=== PATIENT | female | born 1945 | race Caucasian/White ===

== ENCOUNTER 2016-09-05 18:02 | Emergency (ER) | payer MEDICARE ==
[2016-06-21 12:23] VITALS: BMI 26.1
[~2016-09-05 18:02] MED LIST: CARDIZEM60 MG PO; IBUPROFEN600 MG PO; PLAVIX75 MG PO
[2016-09-05 18:42] LABS: BASOPHILS 0.2 % (0.0-2.0); EOSINOPHILS 0.8 % (0-7); HEMATOCRIT 42.6 % (36.0-48.0); HEMOGLOBIN 13.6 g/dL (12-16); IMMATURE GRANULOCYTES 0.2 % (0-5); LYMPHOCYTES 20.6 % (15-50); MCH 27.4 pg (26.0-34.0); MCHC 31.9 g/dL (31.0-37.0); MCV 85.9 fL (80.0-100.0); MEAN PLATELET VOLUME 9.7 fL (7.4-10.4); MONOCYTES 10.2 % (2-11); PLATELET COUNT 307 10x3/uL (130-400); RBC 4.96 10x6/uL (4.00-5.40); RDW 13.8 % (11.5-14.5); WBC 9.3 10x3/uL (4.8-10.8)
[2016-09-05 19:02] LABS: ALBUMIN 3.8 g/dL (3.4-5.0); ANION GAP 14.4 mmol/L (8-16); BILIRUBIN - TOTAL 0.49 mg/dL (0.2-1.3); CALCIUM 8.8 mg/dL (8.5-10.1); CARBON DIOXIDE 26.6 mmol/L (21.0-32.0); CREATININE - SERUM 1.1 mg/dL (0.6-1.3)
[2016-09-05 19:15] LABS: AMYLASE - SERUM 66 U/L (25-115); LIPASE 142 U/L (73-393)
[2016-09-05 20:02] LABS: APPEARANCE CLEAR (CLEAR); BILIRUBIN NEGATIVE (NEGATIVE); COLOR YELLOW (YELLOW); GLUCOSE NEGATIVE (NEGATIVE); KETONE NEGATIVE (NEGATIVE); LEUKOCYTE ESTERASE NEGATIVE (NEGATIVE); NITRITE NEGATIVE (NEGATIVE); PROTEIN NEGATIVE (NEGATIVE); UROBILINOGEN NORMAL (NORMAL)
== END 2016-09-05 21:55 | disposition home or self-care (01) ==
LOC: D.ER 18:02
PROVIDERS: Emergency Medicine
DX: R07.81 Pleurodynia (principal); I10 Essential (primary) hypertension; C22.8 Malignant neoplasm of liver, primary, unspecified as to type

== ENCOUNTER 2016-11-01 17:13 | Emergency (ER) | payer MEDICARE ==
[2016-06-21 12:23] VITALS: BMI 26.1
[2016-11-01 18:33] LABS: BASOPHILS 0.1 % (0.0-2.0); EOSINOPHILS 1.3 % (0-7); HEMOGLOBIN 11.8 g/dL (12-16); IMMATURE GRANULOCYTES 0.3 % (0-5); LYMPHOCYTES 18.7 % (15-50); MCH 26.7 pg (26.0-34.0); MCHC 31.1 g/dL (31.0-37.0); MEAN PLATELET VOLUME 9.5 fL (7.4-10.4); MONOCYTES 9.5 % (2-11); NEUTROPHILS 70.1 % (40-80); RBC 4.42 10x6/uL (4.00-5.40); RDW 15.3 % (11.5-14.5); WBC 7.5 10x3/uL (4.8-10.8)
[2016-11-01 18:49] LABS: PLATELET COUNT 432 10x3/uL (130-400)
[2016-11-01 19:12] LABS: ALBUMIN 3.4 g/dL (3.4-5.0); BILIRUBIN - TOTAL 0.32 mg/dL (0.2-1.3); CALCIUM 8.7 mg/dL (8.5-10.1); CARBON DIOXIDE 27.3 mmol/L (21.0-32.0); CREATININE - SERUM 0.9 mg/dL (0.6-1.3); POTASSIUM - SERUM 4.3 mmol/L (3.5-5.1); PROTEIN - SERUM 7.4 g/dL (6.4-8.2)
== END 2016-11-01 21:15 | disposition home or self-care (01) ==
LOC: D.ER 17:13
PROVIDERS: Emergency Medicine
DX: G89.18 Other acute postprocedural pain (principal); I10 Essential (primary) hypertension; C22.8 Malignant neoplasm of liver, primary, unspecified as to type

== ENCOUNTER → 2017-03-16 08:57 | Outpatient (CLI) | payer MEDICARE ==
[2016-06-21 12:23] VITALS: BMI 26.1
== END | disposition home or self-care (01) ==
LOC: D.CT 08:57
DX: R10.11 Right upper quadrant pain (principal); C22.0 Liver cell carcinoma

== ENCOUNTER 2017-06-27 07:17 | Day surgery (SDC) | payer MEDICARE ==
[~2017-06-27] VITALS: Ht 152.4 cm; Wt 57.3 kg
[2017-06-27] MEDS ORDERED: CARTIA XT120 MG PO (07:56)
[2017-06-27 07:59] LABS: HEMATOCRIT 45.5 % (36.0-48.0); HEMOGLOBIN 14.7 g/dL (12-16); MCHC 32.3 g/dL (31.0-37.0); MCV 86.7 fL (80.0-100.0); MEAN PLATELET VOLUME 10.1 fL (7.4-10.4); RBC 5.25 10x6/uL (4.00-5.40); RDW 14.7 % (11.5-14.5); WBC 5.1 10x3/uL (4.8-10.8)
[2017-06-27 08:00] VITALS: BP 185/83; Ht 152.4 cm; Wt 57.3 kg
[2017-06-27 08:15] LABS: APTT 30.9 SECONDS (22.8-39.4)
[2017-06-27 08:21] LABS: ALBUMIN 3.9 g/dL (3.4-5.0); ANION GAP 12.5 mmol/L (8-16); BILIRUBIN - TOTAL 0.62 mg/dL (0.2-1.3); CARBON DIOXIDE 27.3 mmol/L (21.0-32.0); CREATININE - SERUM 1.1 mg/dL (0.6-1.3); POTASSIUM - SERUM 3.8 mmol/L (3.5-5.1); PROTEIN - SERUM 8.5 g/dL (6.4-8.2)
[2017-06-27 08:41] LABS: INR 0.97 (0.85-1.17); PROTIME 12.7 SECONDS (11.6-15.0)
--- NOTE | 2017-06-27 09:15 | NUR ---
PT REC'D TO ROOM VIA STRETCHER. AWAKE, ALERT, TALKING.
--- NOTE | 2017-06-27 09:30 | NUR ---
FULL LIQ PROVIDED AND TOLERATED.
--- NOTE | 2017-06-27 09:50 | NUR ---
IV D/C'D CATH INTACT. PT UP TO DRESS.
--- NOTE | 2017-06-27 10:10 | NUR ---
D/C INSTRUCTIONS EXPLAINED TO PT. VOICED UNDERSTANDING. COPIES OF ALL GIVEN, WELL WRITTEN RX FOR PROTONIX PER DR. SMITH.
--- NOTE | 2017-06-27 10:20 | NUR ---
D/C'D HOME VIA W/C TO PRIVATE CAR.
--- NOTE | 2017-06-27 10:56 | OP ---
PATIENT NAME: RADHA MENDEZ MEDICAL RECORD: [id number] :43 LOCATION:D.OPS ADMISSION DATE: SURGEON: MARIA EUGENIA SMITH DO DATE OF OPERATION: 06/27/2017 PROCEDURE: EGD with biopsies. INDICATIONS FOR PROCEDURE: Gas and bloating and change in bowel habits. SCOPE: [employer] video gastroscope. MEDICATIONS: Propofol 150 mg IV per anesthesia. ESTIMATED BLOOD LOSS: Minimal. COMPLICATIONS: None. FINDINGS: Informed consent was given. The patient was made comfortable with the above medication. After reaching an adequate level of sedation by slow IV push, the patient was placed on her left side. The endoscope was then advanced under direct visualization through the mouth to the second portion of the duodenum. The upper, middle, and lower thirds of the esophagus appeared normal. At the GE junction, there was some evidence of mild [place] class A reflux-induced esophagitis. The endoscope was advanced beyond the GE junction into the stomach and retroflexed to view the cardia and fundus, which appeared normal. Throughout the stomach in a patchy distribution there was some granularity consistent with possible gastritis or gastropathic changes. Random biopsies were taken to submit for histology and to rule out H. pylori. In the antrum and prepyloric region, there were multiple superficial and one deeper ulceration with the appearances consistent with medication induced ulcerations. The endoscope was advanced beyond the pylorus into the duodenum where the entire examined duodenum appeared normal. The scope was then withdrawn from the patient. The patient tolerated the procedure well and there were no complications. IMPRESSION: 1. [place] class A reflux-induced esophagitis. 2. Gastritis. 3. Multiple antral and prepyloric ulcerations with the appearances consistent with medication induced ulcers. PLAN AND RECOMMENDATIONS: 1. Discharge home when recovery parameters are met. 2. Start Protonix 40 mg daily in the a.m. times 8 weeks. 3. After completion of Protonix or equivalent PPI, consider H2 yari for acid suppression. 4. Repeat upper endoscopy in 8-12 weeks to document healing of ulcerations. 5. Minimize use of NSAIDs as tolerated. 6. Follow up biopsy specimen results and treatment for H. pylori if indicated. 7. Proceed with colonoscopy as scheduled. TRANSINT:[id number] Voice Confirmation ID: [id number] DOCUMENT ID: [id number] OPERATIVE REPORT [id number] VANESSA,RADHAMARIA EUGENIA AIKEN DO at 1056 CC: [id number] DICTATION DATE: 06/27/17904 WEB CONTENT PRODUCER: 06/27/17 1053 [facility] [address] [place] [address]
== END 2017-06-27 10:20 | disposition home or self-care (01) ==
LOC: D.OPS 07:17
PROVIDERS: Anesthesiology
DX: R19.4 Change in bowel habit (principal); K21.0 Gastro-esophageal reflux disease with esophagitis; K29.70 Gastritis, unspecified, without bleeding; I25.10 Atherosclerotic heart disease of native coronary artery without angina pectoris; I10 Essential (primary) hypertension; Z01.812 Encounter for preprocedural laboratory examination

== ENCOUNTER 2017-07-04 08:02 | Day surgery (SDC) | payer MEDICARE ==
[~2017-07-04] VITALS: Ht 152.4 cm; Wt 57.3 kg
[~2017-07-04 08:02] MED LIST changes: +CARTIA XT120 MG PO
[2017-07-04] MEDS ORDERED: PROTONIX40 MG PO (08:26)
[2017-07-04 08:34] VITALS: BP 186/96; Ht 152.4 cm; Wt 57.3 kg
[2017-07-04 09:28] LABS: BASOPHILS 0.4 % (0-2); EOSINOPHILS 1.8 % (0-7); HEMATOCRIT 43.6 % (36.0-48.0); IMMATURE GRANULOCYTES 0.2 % (0-5); LYMPHOCYTES 31.6 % (15-50); MCH 27.6 pg (26.0-34.0); MCHC 32.1 g/dL (31.0-37.0); MCV 85.8 fL (80.0-100.0); MEAN PLATELET VOLUME 10.2 fL (7.4-10.4); MONOCYTES 7.4 % (2-11); NEUTROPHILS 58.6 % (40-80); PLATELET COUNT 236 10x3/uL (130-400); RBC 5.08 10x6/uL (4.00-5.40); RDW 14.5 % (11.5-14.5); WBC 4.5 10x3/uL (4.8-10.8)
[2017-07-04 09:50] LABS: APTT 30.9 SECONDS (22.8-39.4); INR 1.04 (0.85-1.17); PROTIME 13.5 SECONDS (11.6-15.0)
[2017-07-04 09:58] LABS: ALBUMIN 3.7 g/dL (3.4-5.0); ANION GAP 14.3 mmol/L (8-16); BILIRUBIN - TOTAL 0.77 mg/dL (0.2-1.3); CALCIUM 8.6 mg/dL (8.5-10.1); CARBON DIOXIDE 25.4 mmol/L (21.0-32.0); POTASSIUM - SERUM 3.7 mmol/L (3.5-5.1)
--- NOTE | 2017-07-04 11:46 | NUR ---
IV DC WITH CATHER TIP INTACT
--- NOTE | 2017-07-05 11:02 | OP ---
PATIENT NAME: RADHA MENDEZ MEDICAL RECORD: [id number] :43 LOCATION:D.OPS ADMISSION DATE: SURGEON: MARIA EUGENIA SMITH DO DATE OF OPERATION: 07/04/2017 PROCEDURE: Colonoscopy. INDICATIONS FOR PROCEDURE: Change in bowel habits, gas and bloating, history of liver cell carcinoma. SCOPE: Olympus video pediatric colonoscope. MEDICATIONS: Propofol IV per anesthesia. Please see anesthesia report. ESTIMATED BLOOD LOSS: Minimal. COMPLICATIONS: None. FINDINGS: Informed consent was given. The patient was made comfortable with the above medication. After reaching an adequate level of sedation by slow IV push, the patient was placed on her left side. A digital rectal examination was performed and was normal. The endoscope was then advanced under direct visualization through the rectum to the cecum with visualization of the appendiceal orifice and the ileocecal valve. The scope was slowly withdrawn and mucosa was carefully examined. The prep quality was good. There were no polyps visualized on today's examination. There were no diverticula either. Retroflexion was performed in the rectum with visualization of small nonbleeding internal hemorrhoids (grade I). Random biopsies were taken to submit for histopathology and to rule out microscopic colitis. Scope was withdrawn from the patient. The patient tolerated the procedure well and there were no complications. IMPRESSION: Grade I internal hemorrhoids, otherwise normal colonoscopy. PLAN AND RECOMMENDATIONS: 1. Discharge home when recovery parameters are met. 2. High-fiber diet. 3. Continue current medications. 4. Trial of dicyclomine 20 mg up to twice daily as needed for loose stools or abdominal cramping or pain. 5. Recall colonoscopy in 5 years based on history of liver cancer. TRANSINT:[id number] Voice Confirmation ID: [id number] DOCUMENT ID: [id number] MARIA EUGENIA SMITH DO at 1102 CC: [id number] DICTATION DATE: 07/04/17 1055 SOLAR SALES MANAGER: 07/04/17 1250 [facility] 07/04/17 [place] [id number]
== END 2017-07-04 12:00 | disposition home or self-care (01) ==
LOC: D.OPS 08:02
PROVIDERS: Anesthesiology
DX: R19.4 Change in bowel habit (principal); R14.3 Flatulence; Z85.05 Personal history of malignant neoplasm of liver; F17.200 Nicotine dependence, unspecified, uncomplicated; I10 Essential (primary) hypertension; K21.9 Gastro-esophageal reflux disease without esophagitis; I25.10 Atherosclerotic heart disease of native coronary artery without angina pectoris; B19.20 Unspecified viral hepatitis C without hepatic coma; Z01.812 Encounter for preprocedural laboratory examination; K64.0 First degree hemorrhoids

== ENCOUNTER → 2018-04-20 07:42 | Outpatient (CLI) | payer MEDICARE, BC ==
[2017-07-04 08:34] VITALS: BMI 24.6
[~2018-04-20 07:42] MED LIST changes: +PROTONIX40 MG PO
== END | disposition home or self-care (01) ==
LOC: D.NM 07:42
DX: C22.0 Liver cell carcinoma (principal)

== ENCOUNTER 2018-05-02 18:20 | Observation (INO) | payer MEDICARE, BC ==
[~2018-05-02] VITALS: Ht 152.4 cm; Wt 63.6 kg
--- NOTE | ~2018-05-02 | OP ---
PATIENT NAME: RADHA MENDEZ MEDICAL RECORD: [id number] :43 LOCATION:[facility] ADMISSION DATE:05/02/18 SURGEON: MEL CALLEJAS MD DATE OF OPERATION: 05/03/2018 PROCEDURES: 1. PTCA stent LAD. 2. PTCA LAD diagonal. 3. Left heart catheterization. 4. Selective coronary angiography. 5. Left ventriculogram. INDICATION: Angina and coronary artery disease. PROCEDURE IN DETAIL: After informed consent was obtained and after a detailed description of risks, benefits as well as alternative therapies, the patient elected to proceed with angiogram and angioplasty. The right radial area was prepped and draped in normal sterile fashion. Right radial artery was cannulated via modified Seldinger technique with placement of 6-Filipino sheath. All catheters exchanged through this sheath. FINDINGS: Left ventriculogram was performed in standard 30-degree JOHNSON view, reveals good cardiac wall motion throughout all segments. Overall ejection fraction estimated 60%. SELECTIVE CORONARY ANGIOGRAPHY: 1. Left main is with no significant angiographic disease. 2. Left anterior descending has previously placed stents. There is up to 80% in-stent restenosis. The diagonal is stenosed at greater than 90%. It comes off at the stented area. PTCA STENT OF THE LAD: The stents used were 2.25 x 18 and 3.0 x 12 both Farrukh stents. The diagonal was addressed with a 2.25 balloon. Result was 0% residual stenosis throughout. OVERALL IMPRESSION: Successful percutaneous transluminal coronary angioplasty stent of the left anterior descending going from 80% initial stenosis to 0% residual. TRANSINT:[id number] Voice Confirmation ID: [id number] DOCUMENT ID: [id number] MEL CALLEAJS MD at 1859 CC: [id number] DICTATION DATE: 05/03/18 1129 TANK WAGON OPERATOR: 05/03/18 1142 [facility] IN 05/03/18 [place] [id number]
--- NOTE | ~2018-05-02 | CN ---
PATIENT NAME:RADHA GOVEA MEDICAL RECORD: [id number] : 43 LOCATION:[id number] ADMIT DATE: 05/02/18 ACCOUNT: [id number] CONSULTING PHYSICIAN: MEL CALLEJAS MD REFERRING PHYSICIAN: ELSIE MULTANI MD DATE OF CONSULTATION: 05/03/2018 DIAGNOSES: 1. Chest pain compatible with angina. 2. Hypertension. HISTORY OF PRESENT ILLNESS: Ms. Govea presents with 2 weeks of chest pain, worsening over the past 2 days. She now has episodes of chest pain that are quite severe, radiate to her neck and jaw and down her arm. It has been changing in an unstable fashion, especially in the last 2 days. They have been coming on very frequently. She does not correlate this with any exertion. She was having episodes of rest pain yesterday. She did rule out for a myocardial infarction. She has continued to have the episodes of chest discomfort overnight. Her EKG is with nonspecific ST-T abnormalities. She only has a history of hypertension for which she has been tried on lisinopril, but she had a cough and now she is on diltiazem, but only at 120 mg every day and this is not controlling her blood pressure. PHYSICAL EXAMINATION: GENERAL APPEARANCE: Well-nourished, well-developed, appears stated age. Level of distress, comfortable. PSYCHIATRIC: Mental status, alert, normal affect. Orientation, oriented to time, place and person. EYES: Lids and conjunctiva, noninjected. No discharge, no pallor. ENT: Lips, teeth, gums, normal dentition. Oropharynx, no cyanosis, no pallor. NECK: Carotid arteries, bilateral normal upstroke, no bruits, no thrills. JUGULAR VEINS: No jugular venous pressure or distention. CERVICAL LYMPH NODES: Nontender, nonenlarged. THYROID: Not enlarged. Nontender. No nodules. LUNGS: Respiratory effort, unlabored. CHEST: Normal curvature. No thoracic deformity. No chest wall tenderness. Percussion, resonant. Auscultation, clear. No wheezes, no rales, no rhonchi. CARDIOVASCULAR: Precordial exam, nondisplaced. No heaves or pericardial thrills. Rate and rhythm, regular. Heart sounds, normal S1, normal S2. No S3, no gallop, no rub. Systolic murmur, not heard. Diastolic murmur, not heard. EXTREMITIES: No cyanosis, no edema. Peripheral pulses, full and equal in all extremities, except as noted. No bruits appreciated. ABDOMEN: Soft, nondistended. Normal aorta. No bruit. Nontender. No masses. Liver, nontender, no hepatomegaly. Spleen, nontender, no splenomegaly. MUSCULOSKELETAL: No joint tenderness. No joint swelling. No erythema. NEUROLOGICAL: Normal gait, normal strength, normal tone. SKIN: Warm and dry. OVERALL IMPRESSION: 1. Chest pain compatible with angina. We will proceed with coronary angiography as this is in an unstable fashion. Further care depends on findings of the angiography. 2. Hypertension. Easiest thing to do since she is tolerating the diltiazem, but it is not working well to control her blood pressure, is to increase the dose to 240 mg before adding a second agent. CONSULT REPORT [id number] RADHA GOVEA LINDA TRANSINT:[id number] Voice Confirmation ID: [id number] DOCUMENT ID: [id number] MEL CALLEJAS MD at 1439 CC: [id number] DICTATION DATE: 05/03/18 0856 TITLE SEARCHER: 05/03/18 0916 ADM IN [place] [id number] [place] [address]
--- NOTE | ~2018-05-02 | HEMODYNAMI ---
PATIENT:RADHA MENDEZ MEDICAL RECORD: [id number] : 41 LOCATION[facility] [facility] [id number] ADMISSION DATE: 05/02/18 Generatedon:05/03/201811:32 Patient name: RADHA MENDEZ Patient #: [id number] N: [id number] : 1945 Date of study: 05/03/2018 Page: Of Hemodynamic Procedure Report Patient Data Patient Demographics Procedure consent was obtained First Name: RADHA Gender: Female Last Name: VANESSA : 1945 [facility] Initial: LINDA Age: 72 year(s) Patient #: [id number] Race: SSN: [id number] Additional ID: [id number] Contact details [address]: [address] [place] [address] State: [place] City: [place] Zip code: [address] Admission Admission Data Admission Date: 05/02/2018 Admission Time: 21:27 Room #: [facility] Procedure Procedure Types Cath Procedure Diagnostic Procedure C [facility] w/Coronaries Sedation Charges Moderate Sedation up to 15 minutes PCI Procedure Coronary Stent Coronary Stent Initial PTCA PTCA Additional Procedure Description Procedure Date Procedure Date: 05/03/2018 Procedure Start Time: 11:06 Procedure End Time: 11:26 Procedure Staff Name Function Anoop Matamoros MD Performing Physician Candie Harris RT Monitor Vikas Allred RN Nurse James Mariscal RT Scrub Procedure Data Cath Procedure Fluoroscopy Diagnostic fluoroscopy Total fluoroscopy Time: 8.3 time: 8.3 min min Diagnostic fluoroscopy Total fluoroscopy dose: dose: 1034 mGy 1034 mGy Contrast Material Contrast Material Type Amount (ml) Isovue 300 141 Entry Location Entry Primary Successful Side Size Upsize Upsize Entry Closure [place] ccessful Closure Location (Fr) 1 (Fr) 2 (Fr) Remarks Device Remarks Radial Right 6 Fr Mechanical artery Short Compression Estimated blood loss: 5 ml Diagnostic catheters Device Type Used For End Catheter Placement DIAGNOSTIC Leopold 110cm 5 Multi-vessel Fr catheter ([id number]) Angiography DIAGNOSTIC AR 1 MOD 5Fr Multi-vessel catheter ([id number]) Angiography Procedure Complications No complications Procedure Medications Medication Administration Route Dosage Oxygen etCO2 Nasal cannula 2 l/min Heparin Flush Bag added to field 2 bags (1000units/500ml NS) 0.9% NaCl I.V. 100 ml/hr Radial Cocktail added to field 1 syringe (Verapomil 2mg/Nitro 400mcg/Heparin 1500units) Fentanyl I.V. 50 mcg Versed I.V. 1 mg Radial Cocktail I.A. 1 syringe (Verapomil 2mg/Nitro 400mcg/Heparin 1500units) Fentanyl I.V. 50 mcg Versed I.V. 1 mg Heparin Bolus I.V. 4000 units Integrilin (Bolus I.V. 5.6 ml 2mg/ml) Plavix P.O. 600 mg Integrilin (Bolus wasted 4.4 ml 2mg/ml) Hemodynamics Rest Heart Rate: 80 (bpm) Snapshots Pre Cath Intra NCS Post Cath Vital Signs Time Heart Resp SPO2 etCO2 NIBP (mmHg) Rhythm Pain Sedation Rate (ipm) (%) (mmHg) Status Level (bpm) 10:45:32 80 16 94 0 171/108(147) NSR 0 (11) 10(A) , No pain 10:49:50 81 16 93 0 153/88(117) NSR 0 (11) 10(A) , No pain 10:54:04 74 16 96 39.8 138/80(112) NSR 0 (11) 10(A) , No pain 10:58:12 74 17 97 39.1 143/81(113) NSR 0 (11) 10(A) , No pain 11:02:22 73 17 97 38.3 142/82(111) NSR 0 (11) 10(A) , No pain 11:06:29 78 17 98 38.3 151/90(121) NSR 0 (11) 9(A) , No pain 11:10:47 83 16 95 37.6 116/68(90) NSR 0 (11) 9(A) , No pain 11:14:51 79 16 95 39.1 129/75(95) NSR 0 (11) 9(A) , No pain 11:18:59 79 17 96 39.1 132/77(96) NSR 0 (11) 9(A) , No pain 11:23:07 78 16 97 41.4 144/76(110) NSR 0 (11) 10(A) , No pain 11:31:49 76 17 97 36.9 139/89(119) NSR 0 (11) 10(A) , No pain Medications Time Medication Route Dose Verified Delivered Reason Not es Effectiveness by by 10:48:55 Oxygen etCO2 2 l/min Anoop Bean Per physician Nasal Shiloh Allred RN cannula 10:49:05 Heparin Flush added 2 bags Anoop Bean used for Bag to Shiloh Allred RN procedure (1000units/500ml field NS) 10:49:14 0.9% NaCl I.V. 100 Anoop Bean Per physician ml/hr Shiloh Allred RN 10:49:21 Radial Cocktail added 1 Anoop Bean used for (Verapomil to syringe Shiloh Allred RN procedure 2mg/Nitro field 400mcg/Heparin 1500units) 11:05:36 Fentanyl I.V. 50 mcg Anoop Bean for sedation Shiloh Allred RN 11:05:42 Versed I.V. 1 mg Anoop Bean for sedation Shiloh Allred RN 11:07:23 Radial Cocktail I.A. 1 Anoop Davalos for (Verapomil syringe Shiloh Matamoros MD vasodilation 2mg/Nitro 400mcg/Heparin 1500units) 11:07:33 Fentanyl I.V. 50 mcg Anoop Bean for sedation Shiloh Allred RN 11:07:38 Versed I.V. 1 mg Anoop Bean for sedation Shiloh Allred RN 11:19:29 Heparin Bolus I.V. 4000 Anoop Bean for units Shiloh Allred RN anticoagulation 11:19:44 Integrilin I.V. 5.6 ml Anoop Bean for (Bolus 2mg/ml) Shiloh Allred RN antiplatelet therapy 11:29:50 Plavix P.O. 600 mg Anoop Bean for Shiloh Allred RN antiplatelet therapy 11:31:01 Integrilin wasted 4.4 ml Anoop Bean for (Bolus 2mg/ml) Shiloh Allred RN antiplatelet therapy Procedure Log Time Note 10:20:10 James Mariscal RT(R) sent for patient. Start room use. 10:40:19 Time tracking: Regular hours (M-F 7:00 - 5:00) 10:40:23 Plan of Care:Hemodynamics will remain stable., Cardiac rhythm will remain stable., Comfort level will be maintained., Respiratory function will remain adequate., Patient/ family verbilizes understanding of procedure., Procedure tolerated without complication., Recovers from procedure without complications.. 10:40:32 Patient received from PCU to CCL 2 Alert and oriented. Tansferred to table in Supine position. 10:40:33 Warm blankets applied, and fiona hugger turned on for patient comfort. 10:40:34 Correct patient and procedure confirmed by team. 10:40:35 Signed procedure consent form obtained from patient. 10:40:35 ECG and BP/O2 sat monitors applied to patient. 10:44:26 Vital chart was started 10:48:55 Oxygen 2 l/min etCO2 Nasal cannula was administered by Vikas Allred RN; Per physician; 10:49:05 Heparin Flush Bag (1000units/500ml NS) 2 bags added to field was administered by Vikas Allred RN; used for procedure; 10:49:14 0.9% NaCl 100 ml/hr I.V. was administered by Vikas Allred RN; Per physician; 10:49:21 Radial Cocktail (Verapomil 2mg/Nitro 400mcg/Heparin 1500units) 1 syringe added to field was administered by Vikas Allred RN; used for procedure; 10:50:10 Baseline sample Acquired. 10:50:19 Rhythm: sinus rhythm 10:50:21 Full Disclosure recording started 10:50:24 H&P Date Dictated: 05/03/2018 New H&P dictated by physician.. 10:50:25 Pre-procedure instructions explained to patient. 10:50:26 Pre-op teaching completed and patient verbalized understanding. 10:50:27 Family in waiting room. 10:50:29 Patient NPO since Midnight. 10:50:30 Is the patient allergic to Iodine/contrast media? No. 10:50:34 Was the patient premedicated? No 10:50:49 Is patient on blood thinner?No 10:50:51 Patient diabetic? No. 10:50:54 Previous problem with sedation/anesthesia? No ? 10:50:56 Snore? No 10:50:57 Sleep apnea? No 10:50:58 Deviated septum? No 10:50:59 Opens mouth fully? No 10:51:02 Sticks out tongue? Yes 10:51:04 Airway obstruction? No ? 10:51:10 Dentures? Yes in tight 10:51:14 Pre procedure: right dorsailis pedis pulse 2+ Normal; easily identifiable; not easily obliterated 10:51:16 Pre procedure: left dorsailis pedis pulse 2+ Normal; easily identifiable; not easily obliterated 10:51:18 Patient pain scale 0/10 ?. 10:51:23 IV patent on arrival in right hand with 0.9% NaCl at [facility]. 10:51:27 Lab results completed and on chart. 10:51:31 Right Radial & Right Groin area was prepped with chlora-prep and draped in sterile fashion 10:51:31 Alarms reviewed by R. N. 10:51:32 Sharps counted by scrub and verified by R.N. 10:52:49 Physician paged 11:00:34 Zero performed for pressure channel P1 11:05:36 Fentanyl 50 mcg I.V. was administered by Vikas Allred RN; for sedation; 11:05:42 Versed 1 mg I.V. was administered by Vikas Allred RN; for sedation; 11:05:43 Physician arrived 11:05:43 --------ALL STOP TIME OUT------ 11:05:44 Final Timeout: patient, procedure, and site verified with staff and physician. All members of the team are in agreement. 11:05:47 Right Radial & Right Groin site verified by team. 11:05:49 Physical assessment completed. ASA score P 2 - A patient with mild systemic disease as per Anoop Matamoros MD. 11:05:52 Sedation plan: IV Moderate Sedation Medication:Versed, Fentanyl 11:05:56 Use device set Radial Dx or PCI 11:05:57 ACIST Syringe (23703) opened to sterile field. 11:05:57 Medline Cath Pack ([id number]) opened to sterile field. 11:05:58 Bag Decanter (2002) opened to sterile field. 11:05:58 DIAGNOSTIC WIRE .035 260cm J wire (069525) opened to sterile field. 11:05:59 ACIST Hand Control (20790) opened to sterile field. 11:05:59 ACIST Manifold (02545) opened to sterile field. 11:06:01 Tegaderm 4 x 4 (1626W) opened to sterile field. 11:06:02 MBrace Wrist Support (472767050) opened to sterile field. 11:06:03 SHEATH 6Fr Prelude Radial ([id number]) opened to sterile field. 11:06:06 Procedure started. 11:06:10 Local anesthetic to right radial artery with Lidocaine 2% by Anoop Matamoros MD.INITIAL ACCESS ONLY 11:06:20 A 6 Fr Short sheath was inserted into the Right Radial artery 11:06:50 A DIAGNOSTIC Leopold 110cm 5 Fr catheter (624582) was advanced over the wire and used for Multi-vessel Angiography. 11:07:23 Radial Cocktail (Verapomil 2mg/Nitro 400mcg/Heparin 1500units) 1 syringe I.A. was administered by Anoop Matamoros MD; for vasodilation; 11:07:33 Fentanyl 50 mcg I.V. was administered by Vikas Allred RN; for sedation; 11:07:38 Versed 1 mg I.V. was administered by Vikas Allred RN; for sedation; 11:08:42 LCA angiography performed. 11:08:58 Injector settings: Ml/sec: 3, Volume: 6, 11:10:11 Catheter removed. 11:11:03 A DIAGNOSTIC AR 1 MOD 5Fr catheter (412878V) was advanced over the wire and used for Multi-vessel Angiography. 11:11:14 RCA angiography performed. 11:11:17 Injector settings: Ml/sec: 3, Volume: 6, 11:13:29 Catheter removed. 11:13:29 Proceeding to intervention. 11:14:31 INFLATOR Merit BasixCompak (RZ1512) opened to sterile field. 11:14:32 CHOICE PT Extra Support 182cm wire ([id number]) opened to sterile field. 11:14:46 GUIDE 6FR XBLAD 3.5 catheter (29366929) opened to sterile field. 11:15:18 6 Fr xblad 3.5 guide catheter was inserted over the wire 11:17:44 Guide Catheter removed. unable to cannulate vessel. 11:17:55 GUIDE 6FR EBU 3.0 catheter (CO9LHS49) opened to sterile field. 11:19:15 6 Fr ebu 3 guide catheter was inserted over the wire 11::21 choice pt wire advanced. 11:19:26 Wire advanced across lesion. 11:19:29 Heparin Bolus 4000 units I.V. was administered by Vikas Allred RN; for anticoagulation; 11::44 Integrilin (Bolus 2mg/ml) 5.6 ml I.V. was administered by Vikas Allred RN; for antiplatelet therapy; 11:21:09 Place stent Inflation Number: 1 A CORRINA RX 2.25 x 18 stent ([id number]) was prepped and advanced across the Mid LAD. The stent was deployed at 17 LAINEY for 0:10 (min:sec). 11::23 Wire redirected to diag. 11::43 Inflation number: 1 The stent balloon was then re-inflated across the 1st Diag to 13 LAINEY for 0:10 (min:sec). 11::09 Wire redirected to lad. 11:23:36 Place stent Inflation Number: 1 A CORRINA RX 3.0 x 12 stent ([id number]) was prepped and advanced across the Prox LAD. The stent was deployed at 15 LAINEY for 0:10 (min:sec). 11:24:19 Stent catheter was removed intact over wire. 11:24:20 Wire removed. 11:24:20 Guide catheter removed. 11:24:23 TR BAND Standard ([id number]) opened to sterile field. 11:24:31 Sheath removed intact; hemostasis achieved with Mechanical Compression to the Right Radial artery. 11:24:33 Procedure ended.(Physican Out) :25:07 Fluoroscopy time 08.30 minutes. 11:25:12 Fluoroscopy dose: 1034 mGy 11:25:12 Flurop Dose total: 1034 11:25:23 Contrast amount:Isovue 300 141ml. 11:25:25 Sharps counted by scrub and verified by R.N. 11:25:31 TR band inflated with 10cc of air. 11:25:32 Insertion/operative site no bleeding no hematoma. 11:25:36 Post right radial artery:stable 11:25:37 Post Procedure Pulses reassessed and unchanged 11:25:40 Post procedure rhythm: unchanged. 11::42 Estimated blood loss: 5 ml 11::43 Post procedure instruction explained to patient.Patient verbalizes understanding. 11::44 Patient needs reinforcement of post procedure teaching. 11::06 Procedure type changed to Cath procedure, Diagnostic procedure, LHC, LHC w/Coronaries, Sedation Charges, Moderate Sedation up to 15 minutes, PCI procedure, Coronary Stent, Coronary Stent Initial, PTCA, PTCA Additional 11::07 Procedure and supply charges have been captured, reviewed, submitted and are correct. 11:26:12 Procedure Complication : No complications 11::15 Vital chart was stopped 11::15 See physician's report for complete and final results. 11::17 Report given to Pre/Post Procedure Room. 11::20 Patient transfered to Pre/Post Procedure Room with Stretcher. 11::24 Procedure ended. 11::24 Full Disclosure recording stopped 11::32 ACC-PCI Only Patient was given prescriptions, or instructed by Anoop Matamoros MD to start/continue the following medications upon discharge: Aspirin, Plavix 11::34 End room use (Document Last) 11:29:50 Plavix 600 mg P.O. was administered by Vikas Allred RN; for antiplatelet therapy; 11:31:01 Integrilin (Bolus 2mg/ml) 4.4 ml wasted was administered by Vikas Allred RN; for antiplatelet therapy; Intervention Summary Intervention Notes Time ActionType Lesion and Equipment Used Action# Pressure Duration Attributes 11:21:09 Place stent Mid LAD CORRINA RX 2.25 x 1 17 00:10 18 stent ([id number]) 11:21:43 Reinflate 1st Diag CORRINA RX 2.25 x 1 13 00:10 stent 18 stent balloon ([id number]) 11:23:36 Place stent Prox LAD CORRINA RX 3.0 x 1 15 00:10 12 stent ([id number]) Device Usage Item Name Manufacture Quantity Catalog Number Hospital Part Current Minimal Lot# / Charge Number Stock Stock Serial# Code ACIST Syringe Acist 1 58323 508085 942063 163020 20 (81970) Nagi Medline Cath Cardinal 1 [id number] 839682 27023 425063 5 Pack Health ([id number]) Bag Decanter Microtek 1 772252 45257 608772 5 (2001S) Medical Inc. DIAGNOSTIC WIRE [facility] [place] 1 439719 993788 470865 999915 30 .035 260cm J wire (374699) ACIST Hand Acist 1 64290 559366 178921 671851 5 Control (61825) Medical Systems Inc ACIST Manifold Acist 1 82599 383717 635123 021802 5 (12455) Medical Systems Inc Tegaderm 4 x 4 3M 1 1626W 546145 348078 215567 5 (1626W) MBrace Wrist Advanced 1 140-0250-00 293230 09250 636586 5 Support Vascular ([id number]) Dynamics SHEATH 6Fr Merit 1 [id number] 137115 895291 386015 5 Prelude Radial Medical ([id number]) DIAGNOSTIC Terumo 1 50-6282 790788 326866 061216 5 Leopold 110cm 5 Fr catheter (405208) DIAGNOSTIC AR 1 Cardinal 1 [id number] 931480 919125 596295 15 MOD 5Fr Health catheter (120351W) INFLATOR Merit Merit 1 [id number] 357123 904653 171142 15 BasixCom1DocWay Medical ([id number]) CHOICE PT Extra [place] 1 [id number] 183781 787266 229751 5 Support 182cm Scientific wire ([id number]) GUIDE 6FR XBLAD Cardinal 1 [id number] 920143 861279 680330 10 3.5 catheter Health (11037024) GUIDE 6FR EBU Medtronic 1 [id number] 937125 55429 576706 0 3.0 catheter ([id number]) CORRINA RX 2.25 x Medtronic 1 [id number] 975568 3458076 371921 5 [id number] 18 stent ([id number]) CORRINA RX 3.0 x Medtronic 1 [id number] 464951 9827734 050917 5 [id number] 12 stent ([id number]) TR BAND Terumo 1 [id number] 890309 475373 158320 40 Standard ([id number]) Signature Audit [place] Stage Time Signature Unsigned Intra-Procedure 05/03/2018 Candie Harris 11:32:40 AM RT(R) Signatures Monitor : Candie Harris RT Signature : Date : Time : [facility] [address] [place] [address]
[2018-05-02 18:45] LABS: BASOPHILS 0.2 % (0-2); EOSINOPHILS 1.2 % (0-7); HEMATOCRIT 42.3 % (36.0-48.0); IMMATURE GRANULOCYTES 0.2 % (0-5); MCH 28.2 pg (26.0-34.0); MCHC 33.1 g/dL (31.0-37.0); MCV 85.1 fL (80.0-100.0); MEAN PLATELET VOLUME 10.1 fL (7.4-10.4); MONOCYTES 9.9 % (2-11); NEUTROPHILS 68.5 % (40-80); PLATELET COUNT 244 10x3/uL (130-400); RBC 4.97 10x6/uL (4.00-5.40); WBC 9.2 10x3/uL (4.8-10.8)
[2018-05-02 19:05] LABS: ALBUMIN 3.5 g/dL (3.4-5.0); ALKALINE PHOSPHATASE 93 U/L (46-116); ALT (SGPT) 16 U/L (10-68); BILIRUBIN - TOTAL 0.33 mg/dL (0.2-1.3); CALC OSMOLALITY 284 mosm/kg (275-300); CALCIUM 8.5 mg/dL (8.5-10.1); CARBON DIOXIDE 25.2 mmol/L (21.0-32.0); CHLORIDE - SERUM 105 mmol/L (98-107); CREATININE - SERUM 1.1 mg/dL (0.6-1.3); GLUCOSE 98 mg/dL (74-106); POTASSIUM - SERUM 3.5 mmol/L (3.5-5.1); PROTEIN - SERUM 7.7 g/dL (6.4-8.2); SODIUM 142 mmol/L (136-145); UREA NITROGEN 18 mg/dL (7-18); eGFR NON AFRICAN AMERICAN 51 mL/min (90-120)
[2018-05-02 19:16] LABS: CKMB 1.7 U/L (0.0-3.6); CREATINE KINASE 73 UL (21-215); PRO BNP 381 pg/mL (0-125); TROPONIN-I < 0.017 ng/mL (0.000-0.060)
[2018-05-02 19:28] VITALS: BP 163/90
[2018-05-02 20:55] VITALS: BP 159/80
[2018-05-02 21:01] LABS: CREATINE KINASE 63 UL (21-215); TROPONIN-I < 0.017 ng/mL (0.000-0.060)
[2018-05-03 01:57] VITALS: BP 171/98
[2018-05-03 02:55] VITALS: BP 171/98; BMI 27.3
[2018-05-03 03:17] LABS: BASOPHILS 0.3 % (0-2); EOSINOPHILS 1.6 % (0-7); HEMATOCRIT 39.6 % (36.0-48.0); IMMATURE GRANULOCYTES 0.1 % (0-5); LYMPHOCYTES 25.7 % (15-50); MCHC 32.8 g/dL (31.0-37.0); MCV 85.3 fL (80.0-100.0); MEAN PLATELET VOLUME 10.2 fL (7.4-10.4); MONOCYTES 9.7 % (2-11); NEUTROPHILS 62.6 % (40-80); PLATELET COUNT 227 10x3/uL (130-400); RBC 4.64 10x6/uL (4.00-5.40); RDW 13.9 % (11.5-14.5)
[2018-05-03 03:39] LABS: ALKALINE PHOSPHATASE 83 U/L (46-116); ALT (SGPT) 12 U/L (10-68); BILIRUBIN - TOTAL 0.34 mg/dL (0.2-1.3); CALCIUM 8.5 mg/dL (8.5-10.1); CHLORIDE - SERUM 105 mmol/L (98-107); CKMB 1.4 U/L (0.0-3.6); CREATINE KINASE 58 UL (21-215); CREATININE - SERUM 1.1 mg/dL (0.6-1.3); GLUCOSE 108 mg/dL (74-106); POTASSIUM - SERUM 3.4 mmol/L (3.5-5.1); PROTEIN - SERUM 6.9 g/dL (6.4-8.2); SODIUM 142 mmol/L (136-145); eGFR NON AFRICAN AMERICAN 51 mL/min (90-120)
[2018-05-03 03:50] LABS: CALC OSMOLALITY 283 mosm/kg (275-300); TROPONIN-I < 0.017 ng/mL (0.000-0.060); UREA NITROGEN 13 mg/dL (7-18)
[2018-05-03 06:34] VITALS: BP 149/87
[2018-05-03 09:02] LABS: CKMB 1.5 U/L (0.0-3.6); CREATINE KINASE 57 UL (21-215)
[2018-05-03 09:04] VITALS: BP 161/102
[2018-05-03 09:04] LABS: TROPONIN-I < 0.017 ng/mL (0.000-0.060)
[2018-05-03] MEDS ORDERED: BAYER CHEWABLE81 MG PO (12:03)
[2018-05-03] MEDS ORDERED: CARDIZEM CD240 MG PO (12:03)
[2018-05-03] MEDS ORDERED: PLAVIX75 MG PO (12:03)
[2018-05-03 12:23] VITALS: Ht 152.4 cm; Wt 63.6 kg
== END 2018-05-03 15:35 | disposition home or self-care (01) ==
LOC: D.ER 18:20 → OBSVTIME 21:27 → D.M2 21:27 → D.CLR 05-03 11:34
PROVIDERS: Emergency Medicine; Family Medicine
DX: I25.10 Atherosclerotic heart disease of native coronary artery without angina pectoris (principal); I10 Essential (primary) hypertension; E78.5 Hyperlipidemia, unspecified; Z86.73 Personal history of transient ischemic attack (TIA), and cerebral infarction without residual deficits; B19.20 Unspecified viral hepatitis C without hepatic coma; C22.0 Liver cell carcinoma; E87.6 Hypokalemia
CPT/HCPCS: 92921; 93458; C9600

== ENCOUNTER 2018-05-05 08:04 | Outpatient (CLI) | payer MEDICARE, BC ==
[~2018-05-05] VITALS: Ht 152.4 cm; Wt 63.6 kg
--- NOTE | ~2018-05-05 | HEMODYNAMI ---
PATIENT:RADHA MENDEZ MEDICAL RECORD: [id number] : 41 LOCATION:[facility] ADMISSION DATE: 05/05/18 Generatedon:05/05/201810:51 Patient name: RADHA MENDEZ Patient #: [id number] N: [id number] : 1945 Date of study: 05/05/2018 Page: Of Hemodynamic Procedure Report Patient Data Patient Demographics Procedure consent was obtained First Name: RADHA Gender: Female Last Name: VANESSA : 1945 [facility] Initial: LINDA Age: 72 year(s) Patient #: [id number] Race: SSN: [id number] Additional ID: [id number] Contact details Address: [address] [place] [address] State: [place] City: [place] Zip code: [address] Past Medical History Allergies: No known allergies Admission Admission Data Admission Date: 05/05/2018 Admission Time: 8:04 Height (in.): 5 BSA: 0.25 (m2) Height (cm.): 12.7 BMI: 3599.71 (kg/m2) Weight (lbs.): 128 Weight (kg.): 58.06 Lab Results Lab Result Date: 05/05/2018 Lab Result Time: 0:00 Biochemistry Name Units Result Min Max BUN mg/dl 17 --(---*)-- 7 18 Creatinine mg/dl 1.1 --(--*-)-- 0.6 1.3 CBC Name Units Result Min Max Hemoglobin g/dl 14.2 --(*---)-- 13.5 17.5 Procedure Procedure Types Cath Procedure Diagnostic Procedure Sedation Charges Moderate Sedation up to 15 minutes PCI Procedure Coronary Stent Coronary Stent Initial Coronary Stent Additional Procedure Description Procedure Date Procedure Date: 05/05/2018 Procedure Start Time: 10:28 Procedure End Time: 10:48 Procedure Staff Name Function Anoop Matamoros MD Performing Physician Adore Rodriguez RT Monitor Tiffani Rogers RN Nurse Vanessa Foote RN Nurse Sally Marquez RT Scrub Kyaw Misrha RT Traditional [facility] Practitioner Procedure Data Cath Procedure Fluoroscopy Diagnostic fluoroscopy Total fluoroscopy Time: 7.7 time: 7.7 min min Diagnostic fluoroscopy Total fluoroscopy dose: 384 dose: 384 mGy mGy Contrast Material Contrast Material Type Amount (ml) Isovue 300 147 Entry Location Entry Primary Successful Side Size Upsize Upsize Entry Closure Succes sful Closure Location (Fr) 1 (Fr) 2 (Fr) Remarks Device Remarks Femoral Right 6 Fr Exoseal artery Short Estimated blood loss: 10 ml Procedure Complications No complications Procedure Medications Medication Administration Route Dosage Oxygen etCO2 Nasal cannula 2 l/min Lidocaine 2% added to field 20 Heparin Flush Bag added to field 2 bags (1000units/500ml NS) 0.9% NaCl I.V. 100 ml/hr Versed I.V. 1 mg Fentanyl I.V. 50 mcg Versed I.V. 1 mg Fentanyl I.V. 50 mcg Versed I.V. 1 mg Fentanyl I.V. 50 mcg Heparin Bolus I.V. 4000 units Hemodynamics Rest BSA: 0.25 (m2) HGB: 14.2 (g/dl) O2 Consumption: Estimated: 23.32 (ml/min) O2 Con sumption indexed: Estimated:93.28 (ml/min/m) Heart Rate: 75 (bpm) Snapshots Pre Cath Intra NCS Post Cath Vital Signs Time Heart Resp SPO2 etCO2 NIBP (mmHg) Rhythm Pain Sedation Rate (ipm) (%) (mmHg) Status Level (bpm) 10:16:46 79 12 95 39 160/89(132) NSR 0 (11) 10(A) , No pain 10:21:27 79 13 97 39.2 147/80(115) NSR 0 (11) 10(A) , No pain 10:26:10 73 10 95 36.9 121/67(91) NSR 0 (11) 10(A) , No pain 10:30:48 72 10 96 35.4 128/68(96) NSR 0 (11) 10(A) , No pain 10:35:23 71 12 96 37.7 120/74(104) NSR 0 (11) 9(A) , No pain 10:40:01 73 10 96 39.2 116/60(88) NSR 0 (11) 9(A) , No pain 10:44:38 78 11 97 39.2 125/75(99) NSR 0 (11) 10(A) , No pain Medications Time Medication Route Dose Verified Delivered Reason Notes Effectiveness by by 10:17:17 Oxygen etCO2 2 Anoop Buffie used for Nasal l/min Shiloh Rogers RN procedure cannula 10:17:24 Lidocaine 2% added 20ml Anoop Anoop for local to vial Shiloh Matamoros MD anesthetic field 10:17:34 Heparin Flush added 2 Anoop Anoop used for Bag to bags Shiloh Matamoros MD procedure (1000units/500ml field NS) 10:20:14 0.9% NaCl I.V. 100 Anoop Buffie Per physician ml/hr Shiloh Rogers RN 10:23:23 Versed I.V. 1 mg Anoop Buffie for sedation Shiloh Rogers RN 10:23:29 Fentanyl I.V. 50 Anoop Buffie for sedation mcg Shiloh Rogers RN 10:26:56 Versed I.V. 1 mg Anoop Buffie for sedation Shiloh Rogers RN 10:27:00 Fentanyl I.V. 50 Anoop Buffie for sedation mcg Shiloh Rogers RN 10:32:29 Versed I.V. 1 mg Anoop Buffie for sedation Shiloh Rogers RN 10:32:34 Fentanyl I.V. 50 Anoop Buffie for sedation mcg Shiloh Rogers RN 10:35:38 Heparin Bolus I.V. 4000 Anoop Buffie for verif ied units Shiloh Rogers RN anticoagulation with Dr. Matamoros Procedure Log Time Note 9:59:34 Kyaw Mishra RT(R) sent for patient. Start room use. 9:59:35 Time tracking: Regular hours (M-F 7:00 - 5:00) 9:59:38 Plan of Care:Hemodynamics will remain stable., Cardiac rhythm will remain stable., Comfort level will be maintained., Respiratory function will remain adequate., Patient/ family verbilizes understanding of procedure., Procedure tolerated without complication., Recovers from procedure without complications.. 10:04:16 H&P Date Dictated: 04/13/2018 Within 30 days and on chart., H&P Addendum completed by physician on day of procedure. (MUST COMPLETE FOR ALL OUTPATIENTS). 10:04:22 Patient allergic to No known allergies 10:04:32 Patient Height : 5 inches 10:04:35 Patient Weight : 128 lbs 10:05:50 Lab Result : BUN 17 mg/dl 10:05:50 Lab Result : Creatinine 1.1 mg/dl 10:05:50 Lab Result : Hemoglobin 14.2 g/dl 10:12:16 Patient received from Pre/Post Procedure Room to CCL 1 Alert and oriented. Tansferred to table in Supine position. 10:12:17 Warm blankets applied, and fiona hugger turned on for patient comfort. 10:12:18 Correct patient and procedure confirmed by team. 10:12:19 Signed procedure consent form obtained from patient. 10:12:20 ECG and BP/O2 sat monitors applied to patient. 10:14:38 Full Disclosure recording started 10:15:50 Vital chart was started 10:17:17 Oxygen 2 l/min etCO2 Nasal cannula was administered by Tiffani Rogers RN; used for procedure; 10:17:24 Lidocaine 2% 20ml vial added to field was administered by Anoop Matamoros MD; for local anesthetic; 10:17:34 Heparin Flush Bag (1000units/500ml NS) 2 bags added to field was administered by Anoop Matamoros MD; used for procedure; 10:17:57 Pre-procedure instructions explained to patient. 10:17:57 Pre-op teaching completed and patient verbalized understanding. 10:18:01 Family in patients room. 10:18:03 Patient NPO since Midnight. 10:18:05 Is the patient allergic to Iodine/contrast media? No. 10:18:49 Is patient on blood thinner?Yes 10:18:51 ACC The patient was administered the following blood thiners within the last 24 hours: ACCPlavix 10:18:54 Patient diabetic? No. 10:18:56 Patient not . Patient is over age 55. 10:18:58 Previous problem with sedation/anesthesia? No ? 10:19:00 Snore? No 10:19:01 Sleep apnea? No 10:19:02 Deviated septum? No 10:19:03 Opens mouth fully? Yes 10:19:04 Sticks out tongue? Yes 10:19:06 Airway obstruction? No ? 10:19:11 Dentures? Yes IN TIGHT 10:19:19 Pre procedure: right dorsailis pedis pulse 2+ Normal; easily identifiable; not easily obliterated 10:19:22 Patient pain scale 0/10 ?. 10:19:26 IV patent on arrival in left hand with 0.9% NaCl at [facility]. 10:19:28 Lab results completed and on chart. 10:19:31 Right groin area was prepped with chlora-prep and draped in sterile fashion 10:19:32 Alarms reviewed by R. N. 10:19:33 Sharps counted by scrub and verified by R.N. 10:19:44 Use device set CATH PACK 10:19:45 ACIST Syringe (17661) opened to sterile field. 10:19:46 ACIST Hand Control (76797) opened to sterile field. 10:19:46 ACIST Manifold (91449) opened to sterile field. 10:19:47 Medline Cath Pack ([id number]) opened to sterile field. 10:19:47 Bag Decanter (2002S) opened to sterile field. 10:19:48 DIAGNOSTIC WIRE .035 260cm J wire (016480) opened to sterile field. 10:20:06 SHEATH 6FR [place] (PDZ212) opened to sterile field. 10:20:07 INFLATOR Merit BasixCompak (GO9393) opened to sterile field. 10:20:08 CHOICE PT Extra Support 182cm wire ([id number]) opened to sterile field. 10:20:14 0.9% NaCl 100 ml/hr I.V. was administered by Tiffani Rogers RN; Per physician; 10:22:24 Baseline sample Acquired. 10::28 Rhythm: sinus rhythm 10::33 --------ALL STOP TIME OUT------ 10:22:34 Final Timeout: patient, procedure, and site verified with staff and physician. All members of the team are in agreement. 10:22:35 Right groin site verified by team. 10:22:37 Physical assessment completed. ASA score P 2 - A patient with mild systemic disease as per Anoop Matamoros MD. 10:22:40 Sedation plan: IV Moderate Sedation Medication:Versed, Fentanyl 10:23:23 Versed 1 mg I.V. was administered by Tiffani Rogers RN; for sedation; 10:23:29 Fentanyl 50 mcg I.V. was administered by Tiffani Rogers RN; for sedation; 10:26:15 Zero performed for pressure channel P1 10:26:56 Versed 1 mg I.V. was administered by Tiffani Rogers RN; for sedation; 10:27:00 Fentanyl 50 mcg I.V. was administered by Tiffani Rogers RN; for sedation; 10:27:59 Procedure started. 10:28:20 GUIDE 6FR AR 2.0 SH catheter ([id number]) opened to sterile field. 10:28:39 Local anesthetic to right femoral artery with Lidocaine 2% by Anoop Matamoros MD.INITIAL ACCESS ONLY 10:29:03 A 6 Fr Short sheath was inserted into the Right Femoral artery 10:29:21 6 Fr AR 2 SH guide catheter was inserted over the wire 10:30:51 GUIDE UNABLE TO ENGAGE RCA 10:30:53 Guide catheter removed. 10:32:29 Versed 1 mg I.V. was administered by Tiffani Rogers RN; for sedation; 10:32:34 Fentanyl 50 mcg I.V. was administered by Tiffani Rogers RN; for sedation; 10:33:21 GUIDE 6FR AL 3.0 catheter ([id number]) opened to sterile field. 10:33:27 6 Fr AL 3 guide catheter was inserted over the wire 10:35:38 Heparin Bolus 4000 units I.V. was administered by Tiffani Rogers RN; for anticoagulation; verified with Dr. Matamoros 10:35:41 CHOICE ES 182 wire advanced. 10:36:22 Wire advanced across lesion. 10:37:57 The CORRINA RX 2.0 x 18 stent ([id number]) was advanced then removed because of failure to cross lesion 10:39:03 Inflate balloon Inflation number: 1 A EUPHORA 2.0 x 15 Balloon ([id number]) was prepped and advanced across the R PDA, then inflated to 13 LAINEY for 0:10 (min:sec). 10:39:23 Inflation number: 2 The EUPHORA 2.0 x 15 Balloon ([id number]) was reinflated across the R PDA, to 15 LAINEY for 0:10 (min:sec). 10:39:44 Balloon removed over the wire. 10:40:40 Place stent Inflation Number: 3 A CORRINA RX 2.0 x 18 stent ([id number]) was prepped and advanced across the R PDA. The stent was deployed at 13 LAINEY for 0:10 (min:sec). 10:41:00 Inflation number: 4 The stent balloon was then re-inflated across the R PDA to 15 LAINEY for 0:10 (min:sec). 10:41:12 Stent catheter was removed intact over wire. 10:43:36 Place stent Inflation Number: 1 A CORRINA RX 3.5 x 12 stent ([id number]) was prepped and advanced across the Prox RCA. The stent was deployed at 13 LAINEY for 0:10 (min:sec). 10:44:18 Stent catheter was removed intact over wire. 10:44:19 Wire removed. 10:44:20 Guide catheter removed. 10:44:53 EXOSEAL 6Fr (EX600) opened to sterile field. 10:45:03 Sheath removed intact; hemostasis achieved with Exoseal to the Right Femoral artery. 10:45:06 Procedure ended.(Physican Out) 10:46:38 Fluoroscopy time 07.70 minutes. 10:46:43 Flurop Dose total: 384 10:46:43 Fluoroscopy dose: 384 mGy 10:46:49 Contrast amount:Isovue 300 147ml. 10:46:50 Sharps counted by scrub and verified by R.N. 10:46:54 Post-op/insertion site Right Femoral artery dressed using a 4 x 4 and Tegaderm. 10:46:58 Post right femoral artery:stable, soft, clean and dry 10:47:01 Post-procedure physical assessment completed. ASA score P 2 - A patient with mild systemic disease as per Anoop Matamoros MD. 10:47:03 Post procedure rhythm: unchanged. 10:47:05 Estimated blood loss: 10 ml 10:47:06 Post procedure instruction explained to patient.Patient verbalizes understanding. 10:47:07 Patient needs reinforcement of post procedure teaching. 10:47:21 Procedure type changed to Cath procedure, Diagnostic procedure, Sedation Charges, Moderate Sedation up to 15 minutes, PCI procedure, Coronary Stent, Coronary Stent Initial, Coronary Stent Additional 10:48:20 Procedure and supply charges have been captured, reviewed, submitted and are correct. 10:48:22 Procedure Complication : No complications 10:48:23 Vital chart was stopped 10:48:24 See physician's report for complete and final results. 10:48:26 Report given to Pre/Post Procedure Room. 10:48:28 Patient transfered to Pre/Post Procedure Room with Bed. 10:48:30 Procedure ended. 10:48:30 Full Disclosure recording stopped 10:48:33 End room use (Document Last) Intervention Summary Intervention Notes Time ActionType Lesion and Equipment Used Action# Pressure Duration Attributes 10:37:57 Discard CORRINA RX 2.0 x Stent 18 stent ([id number]) 10:39:03 Inflate R PDA EUPHORA 2.0 x 1 13 00:10 balloon 15 Balloon ([id number]) 10:39:23 Reinflate R PDA EUPHORA 2.0 x 2 15 00:10 balloon 15 Balloon ([id number]) 10:40:40 Place stent R PDA CORRINA RX 2.0 x 3 13 00:10 18 stent ([id number]) 10:41:00 Reinflate R PDA CORRINA RX 2.0 x 4 15 00:10 stent 18 stent balloon ([id number]) 10:43:36 Place stent Prox RCA CORRINA RX 3.5 x 1 13 00:10 12 stent ([id number]) Device Usage Item Name Manufacture Quantity Catalog Number Hospital Part Current M inimal Lot# / Charge Number Stock Stock Serial# Code ACIST Syringe Acist 1 22495 173561 017652 180911 2 0 (74755) Medical Systems Inc ACIST Hand Acist 1 05042 477827 982562 712261 5 Control Medical (31730) Systems Inc ACIST Manifold Acist 1 12533 542730 012258 018221 5 (58204) Medical Systems Inc Medline Cath Cardinal 1 [id number] 000359 20160 508998 5 [facility] ([id number]) Bag Decanter Microtek 1 2001S 197110 98523 080567 5 () Medical Inc. DIAGNOSTIC St [place] 1 529940 833838 307988 750173 3 0 WIRE .035 260cm J wire (789274) SHEATH 6FR Terumo 1 BFA809 956822 954265 794015 4 0 [place] (MXA333) INFLATOR Merit Merit 1 DE1038 082943 487215 367187 1 5 Vumanity Media (IX6652) CHOICE PT [place] 1 [id number] 436599 935213 979766 5 Extra Support Scientific 182cm wire ([id number]) GUIDE 6FR AR Medtronic 1 [id number] 429217 36527 074745 1 2.0 SH catheter ([id number]) GUIDE 6FR AL Medtronic 1 HT2CI88 756054 30881 144181 1 3.0 catheter (GR7LW89) CORRINA RX 2.0 x Medtronic 1 [id number] 915017 3771309 855399 5 [id number] 18 stent ([id number]) EUPHORA 2.0 x Medtronic 1 [id number] 509107 513560 663400 5 [id number] 15 Balloon ([id number]) CORRINA RX 3.5 x Medtronic 1 [id number] 835193 7092096 322633 5 [id number] 12 stent ([id number]) EXOSEAL 6Fr Cardinal 1 EX600 652023 935681 153812 1 0 (EX600) Health Signature Audit [place] Stage Time Signature Unsigned Intra-Procedure 05/05/2018 Adore Rodriguez 10:51:31 AM RT(R) Signatures Monitor : Adore Rodriguez Signature : RT Date : Time : [address] [id number]
--- NOTE | ~2018-05-05 | OP ---
PATIENT NAME: RADHA MENDEZ MEDICAL RECORD: [id number] :41 LOCATION:D.CAT ADMISSION DATE: SURGEON: MEL CALLEJAS MD DATE OF OPERATION: 05/05/2018 PROCEDURES: 1. PTCA stent RCA. 2. PTCA stent PDA. 3. Selective coronary angiography. INDICATION: Angina and coronary artery disease. PROCEDURE PERFORMED: After informed consent was obtained and after a detailed description of risks, benefits as well as alternative therapies, the patient elected to proceed with angiogram and angioplasty. The right femoral area was prepped and draped in normal sterile fashion. The right femoral artery was cannulated via modified Seldinger technique with placement of 6-Hebrew sheath. All catheters exchanged through this sheath. FINDINGS: The right coronary artery has an 85% stenosis at the ostium 95% stenosis of the PDA. The PDA was addressed with a 2.0 x 18 mm Farrukh, the ostium with a 3.5 x 12 mm Farrukh. Result was 0% residual stenosis. OVERALL IMPRESSION: Successful percutaneous transluminal coronary angioplasty stent of the right coronary artery going from 95% initial stenosis to 0% residual. TRANSINT:[id number] Voice Confirmation ID: [id number] DOCUMENT ID: [id number] MEL CALLEJAS MD at 1859 CC: [id number] DICTATION DATE: 05/05/18 1050 ENGRAVER LETTER: 05/05/18 1054 DEP CLI 05/05/18 [place] [id number]
[~2018-05-05 08:04] MED LIST changes: +BAYER CHEWABLE81 MG PO; +CARDIZEM CD240 MG PO
[2018-05-05 08:26] VITALS: BP 156/78; Ht 152.4 cm; Wt 63.6 kg
[2018-05-05 08:35] LABS: BASOPHILS 0.2 % (0-2); EOSINOPHILS 1.7 % (0-7); HEMATOCRIT 42.9 % (36.0-48.0); HEMOGLOBIN 14.2 g/dL (12-16); IMMATURE GRANULOCYTES 0.2 % (0-5); MCH 28.2 pg (26.0-34.0); MCHC 33.1 g/dL (31.0-37.0); MCV 85.3 fL (80.0-100.0); MEAN PLATELET VOLUME 9.8 fL (7.4-10.4); MONOCYTES 9.3 % (2-11); NEUTROPHILS 65.6 % (40-80); PLATELET COUNT 246 10x3/uL (130-400); RBC 5.03 10x6/uL (4.00-5.40); RDW 13.8 % (11.5-14.5)
[2018-05-05 08:42] LABS: ANION GAP 8.9 mmol/L (8-16); CALCIUM 8.6 mg/dL (8.5-10.1); CARBON DIOXIDE 27.7 mmol/L (21.0-32.0); CREATININE - SERUM 1.1 mg/dL (0.6-1.3); POTASSIUM - SERUM 3.6 mmol/L (3.5-5.1)
== END 2018-05-05 15:05 ==
LOC: D.CATH 08:04
PROVIDERS: Internal Medicine Interventional Cardiology
DX: I25.110 Atherosclerotic heart disease of native coronary artery with unstable angina pectoris (principal)
CPT/HCPCS: C9600; C9601

== ENCOUNTER 2018-05-14 11:27 | Emergency (ER) | payer MEDICARE, BC ==
[~2018-05-14] VITALS: Ht 152.4 cm; Wt 62.7 kg
[2018-05-14 11:41] VITALS: Ht 152.4 cm; Wt 62.7 kg
[2018-05-14 12:42] LABS: BASOPHILS 0.4 % (0-2); EOSINOPHILS 2.9 % (0-7); HEMOGLOBIN 12.2 g/dL (12-16); IMMATURE GRANULOCYTES 0.2 % (0-5); LYMPHOCYTES 35.1 % (15-50); MCV 85.1 fL (80.0-100.0); MEAN PLATELET VOLUME 9.7 fL (7.4-10.4); MONOCYTES 10.3 % (2-11); NEUTROPHILS 51.1 % (40-80); PLATELET COUNT 264 10x3/uL (130-400); RBC 4.35 10x6/uL (4.00-5.40); WBC 4.8 10x3/uL (4.8-10.8)
[2018-05-14 12:52] LABS: ALBUMIN 3.3 g/dL (3.4-5.0); ANION GAP 12.4 mmol/L (8-16); BILIRUBIN - TOTAL 0.71 mg/dL (0.2-1.3); CALCIUM 8.4 mg/dL (8.5-10.1); CARBON DIOXIDE 26.3 mmol/L (21.0-32.0); POTASSIUM - SERUM 3.7 mmol/L (3.5-5.1)
[2018-05-14 14:41] VITALS: BP 154/84
== END 2018-05-14 14:42 | disposition home or self-care (01) ==
LOC: D.ER 11:27
PROVIDERS: Family Medicine
DX: R10.30 Lower abdominal pain, unspecified (principal); Z86.79 Personal history of other diseases of the circulatory system; Z98.890 Other specified postprocedural states; Z86.73 Personal history of transient ischemic attack (TIA), and cerebral infarction without residual deficits; Z86.19 Personal history of other infectious and parasitic diseases; R22.41 Localized swelling, mass and lump, right lower limb; M79.651 Pain in right thigh

== ENCOUNTER 2019-01-02 19:15 | Inpatient (IN) | payer MEDICARE, BC ==
--- NOTE | 2019-01-02 20:48 | NUR ---
PT ARRIVED TO ROOM 2101 PT IS AAO, UP WITH MINIMAL ASSIST BALANCE PROBLEMS. PT STATES WILL CALL FOR ASSIST. FAMILY IN ROOM. OBTAINED ORDERS FOR DIRECT ADMIT. PLACED INTO COMPUTER.
--- NOTE | 2019-01-02 22:35 | NUR ---
2 UNSUCCESSFUL ATTEMPTS FOR AN IV.
--- NOTE | 2019-01-02 23:35 | NUR ---
20G PLACED IN LEFT FOREARM. NIGHT MEDICATIONS GIVEN. PT HAS FAMILY IN ROOM. DAUGHTER TATE FOX NUMBER [phone] PT HAS NS INFUSING AT 100 ORDERED. DENIES ANY NEEDS. WILL CALL FOR ASSIST WHEN NEEDED. WILL CPOC
[2019-01-03] VITALS (7 sets, daily range): BP systolic 128–173; BP diastolic 67–97; BMI 23.8
--- NOTE | 2019-01-03 00:29 | NUR ---
EKG COMPLETE AND PLACED INTO CHART
[2019-01-03 01:08] LABS: APPEARANCE CLEAR (CLEAR); BILIRUBIN NEGATIVE (NEGATIVE); COLOR DK YELLOW (YELLOW); GLUCOSE NEGATIVE (NEGATIVE); KETONE SMALL mg/dL (NEGATIVE); NITRITE NEGATIVE (NEGATIVE); PROTEIN TRACE mg/dL (NEGATIVE); UROBILINOGEN NORMAL (NORMAL)
[2019-01-03 01:18] LABS: BACTERIA MODERATE /hpf (NONE SEEN); CALCIUM OXALATE CRYSTALS OCC /hpf (NONE SEEN); EPITHELIAL CELLS OCC /hpf (0-5); HYALINE CAST OCC /lpf (NONE SEEN); MUCUS >1+ /lpf (NONE SEEN); RED CELLS - URINE RARE /hpf (0-5); WHITE CELLS - URINE 0-5 /hpf (0-5)
--- NOTE | 2019-01-03 02:25 | NUR ---
PT ASLEEP, RESP EVEN AND UNLABORED. NO S/S OF DISTRESS. FAMILY AT BEDSIDE. CALL LIGHT IN REACH. BED LOW. WILL CPOC
[2019-01-03 05:46] LABS: BASOPHILS 0 % (0-2); EOSINOPHILS 0 % (0-7); HEMATOCRIT 42.6 % (36.0-48.0); HEMOGLOBIN 14.5 g/dL (12-16); IMMATURE GRANULOCYTES 0.5 % (0-5); LYMPHOCYTES 14.6 % (15-50); MCH 28.8 pg (26.0-34.0); MCV 84.7 fL (80.0-100.0); MEAN PLATELET VOLUME 10.2 fL (7.4-10.4); MONOCYTES 4.4 % (2-11); NEUTROPHILS 80.5 % (40-80); RBC 5.03 10x6/uL (4.00-5.40); RDW 14.3 % (11.5-14.5); WBC 3.9 10x3/uL (4.8-10.8)
[2019-01-03 05:50] LABS: PLATELET COUNT 198 10x3/uL (130-400)
[2019-01-03 06:44] LABS: ALBUMIN 3.3 g/dL (3.4-5.0); ALKALINE PHOSPHATASE 62 U/L (46-116); ALT (SGPT) 19 U/L (10-68); BILIRUBIN - TOTAL 0.56 mg/dL (0.2-1.3); CALC OSMOLALITY 280 mosm/kg (275-300); CALCIUM 8.4 mg/dL (8.5-10.1); CARBON DIOXIDE 23.3 mmol/L (21.0-32.0); CHLORIDE - SERUM 102 mmol/L (98-107); CKMB 3.5 U/L (0.0-3.6); CREATINE KINASE 120 UL (21-215); CREATININE - SERUM 1.1 mg/dL (0.6-1.3); POTASSIUM - SERUM 4.1 mmol/L (3.5-5.1); PROTEIN - SERUM 7.2 g/dL (6.4-8.2); SODIUM 137 mmol/L (136-145); TROPONIN-I < 0.017 ng/mL (0.000-0.060); UREA NITROGEN 24 mg/dL (7-18); eGFR NON AFRICAN AMERICAN 51 mL/min (90-120)
--- NOTE | 2019-01-03 06:47 | NUR ---
PT RECEIVING BREATHING TREATMENT, NOURISHMENT WITHIN REACH. NS INFUSING AT 100 ORDERED. PT DENIES ANY NEEDS. NO S/S OF DISTRESS. PT WILL CALL FOR ASSIST WHEN NEEDED. WILL CPOC
[2019-01-03 06:54] LABS: GLUCOSE 145 mg/dL (74-106)
--- NOTE | 2019-01-03 07:05 | NUR ---
RECEIVED IN BED WITH CL IN REACH. FAMILY AT BEDSIDE. DENIES ANY C/O AT THIS TIME. IV SITE IS CLEAR. ALERT AND ORIENT. DRY NON-PRODUCTIVE COUGH NOTED
--- NOTE | 2019-01-03 09:30 | NUR ---
CL IN REACH CONTINUE WITH POC. FAMILY AT BEDSIDE THEY ARE WATCHING TV DENIES ANY CURRENT NEEDS OR PAIN.
--- NOTE | 2019-01-03 09:49 | NUR ---
SHE WAS OFFERED SCD'S AND REFUSED THEM. SHE UNDERSTANDS THEY COULD HELP PREVENT A DVT. EDUCATION DONE WITH HER AND DAUGHTER AND SHE STATED SHE STILL REFUSED THEM.
--- NOTE | 2019-01-03 11:41 | HP ---
PATIENT: RADHA GOVEA MEDICAL RECORD: [id number] ACCOUNT: [id number] LOCATION:[facility].2102 : 41 ADMISSION DATE: 01/02/19 PCP: RHIANNA CORRIGAN DO HISTORY AND PHYSICAL EXAMINATION HISTORY OF PRESENT ILLNESS: Ms. Govea is 73-year-old white female that presents to the clinic today complaining of coughing, wheezing for 4 days with nausea and vomiting and has been unable to keep much down. She has a history of COPD, although she has never smoked. She has had lots of secondary smoke exposure. She has a history of hepatocellular carcinoma. She is status post ablation. This is felt to be secondary to her history of hepatitis C. She looks moderately ill here in the clinic today and is clinically dehydrated. She has bilateral rhonchi and wheezes. Her chest x-ray reveals no actual infiltrates. She is going to be admitted for treatment of her bronchitis and nausea and vomiting and dehydration. PAST MEDICAL HISTORY: Again significant for history of hepatitis C with subsequent development of a primary hepatocellular carcinoma of the liver, COPD, reflux, scoliosis, DJD of the spine, hypertension, coronary artery disease, and osteoporosis. FAMILY HISTORY: Significant for breast cancer, ovarian cancer, and COPD. ALLERGIES OR INTOLERANCES: None. HOME MEDICATIONS: Include diltiazem 240 extended release 1 daily and clopidogrel 75 mg once a day. PAST SURGICAL HISTORY: Significant for cholecystectomy, liver resection, PTCA, total hysterectomy in 71. She has also had an ablation to her liver too. SOCIAL HISTORY: The patient does not smoke. She does not drink. She still works. REVIEW OF SYSTEMS: She has not had any fever. She is complaining of shortness of breath, coughing or wheezing. No chest pain. She does complain of some abdominal discomfort with nausea and vomiting. No edema. No change in bowel habits. No dysuria. PHYSICAL EXAMINATION: GENERAL: She appears moderately ill. HEENT: Sclerae nonicteric. Mucous membranes are a little dry. NECK: Soft and supple. HEART: Regular. LUNGS: With bilateral rhonchi and wheezes. ABDOMEN: With mild generalized tenderness. NEUROLOGIC: Without any gross focal deficits. IMPRESSION: 1. Chronic obstructive pulmonary disease exacerbation. 2. History of primary hepatocellular carcinoma of the liver. 3. History of hepatitis C. 4. Coronary artery disease. 5. Dehydration. HISTORY AND PHYSICAL [id number] RADHA GOVEA PLAN: Admit. Chest x-ray in the office reveals no acute infiltrates. We will need follow up chest x-ray in the hospital. Clear liquids for now. Check labs. Pulmonary toilet. See orders for rest of plan. TRANSINT:[id number] Voice Confirmation ID: [id number] DOCUMENT ID: [id number] RHIANNA CORRIGAN DO at 1141 CC: [id number] DICTATION DATE: 01/02/191749 WEB MARKETING MANAGER: 01/02/192116 ADM IN [facility] [address] [place] [id number]
--- NOTE | 2019-01-03 11:56 | NUR ---
PATIENT STATES SHE IS HAVING GROWLING IN THE TOP OF HER STOMACH. SHE HAD NO N/V TOLERATED BREAKFAST WELL. SPOKE WITH MARQUEZ AND ORDER TO ADVANCE DIET TO FULL LIQUID DIET.
--- NOTE | 2019-01-03 14:14 | NUR ---
NEW ORDER DUE TO TOLERATING FULL LIQUID DIET TO ADVANCE TO REGULAR. SHE IS HAVING COUGH ON AND OFF WITH THICK WHITE SPUTUM AT TIMES. CL IN REACH DENIES ANY CURRENT NEEDS.
--- NOTE | 2019-01-03 16:30 | NUR ---
NO C/O AT THIS TIME CL IN REACH NO CHANGE IN CONDITION. ALERT ABLE TO VOICE NEEDS.
--- NOTE | 2019-01-03 17:50 | NUR ---
WATCHING TV IN ROOM. TOLERATED HER REGULAR DIET FOR SUPPER WELL. NO C/O N/V.
--- NOTE | 2019-01-03 19:33 | NUR ---
PATIENT SITTING UP IN BED. NO COMPLAINTS AT THIS TIME. NO DISTRESS NOTED.
--- NOTE | 2019-01-04 02:36 | NUR ---
I have reviewed this patient and I concur with the Shift Assessment completed by the Licensed Practical Nurse today this shift.
--- NOTE | 2019-01-04 03:03 | NUR ---
PATIENT LAYING IN BED. DAUGHTER AT BEDSIDE. NO COMPLAINTS AT THIS TIME. NO DISTRESS NOTED.
[2019-01-04 04:30] VITALS: BP 143/74
[2019-01-04 04:45] LABS: BASOPHILS 0 % (0-2); EOSINOPHILS 0 % (0-7); HEMATOCRIT 37.6 % (36.0-48.0); HEMOGLOBIN 12.8 g/dL (12-16); IMMATURE GRANULOCYTES 0.2 % (0-5); LYMPHOCYTES 5.1 % (15-50); MCV 85.3 fL (80.0-100.0); MEAN PLATELET VOLUME 9.9 fL (7.4-10.4); NEUTROPHILS 90.7 % (40-80); PLATELET COUNT 171 10x3/uL (130-400); RBC 4.41 10x6/uL (4.00-5.40); RDW 14.1 % (11.5-14.5)
[2019-01-04 05:07] LABS: ANION GAP 13.1 mmol/L (8-16); CALCIUM 8.3 mg/dL (8.5-10.1); CARBON DIOXIDE 23.1 mmol/L (21.0-32.0)
[2019-01-04 05:10] LABS: POTASSIUM - SERUM 3.2 mmol/L (3.5-5.1)
--- NOTE | 2019-01-04 06:00 | NUR ---
PATIENT LAYING IN BED. DAUGHTER AT BEDSIDE. NO COMPLAINTS AT THIS TIME. NO DISTRESS NOTED.
[2019-01-04 07:35] VITALS: BP 149/68
--- NOTE | 2019-01-04 10:39 | NUR ---
PATIENT RESTING. DAUGHTER IN ROOM. CL/PHONE IN REACH. WCTM
[2019-01-04 11:21] VITALS: BP 159/75
[2019-01-04 12:36] LABS: CKMB 7.1 U/L (0.0-3.6); CREATINE KINASE 114 UL (21-215); TROPONIN-I < 0.017 ng/mL (0.000-0.060)
--- NOTE | 2019-01-04 15:21 | NUR ---
PATIENT WATCHING TV. DAUGHTER TATE WENT HOME AND SAID WE COULD CALL HER IF WE NEEDED HER. CL/PHONE IN REACH WCTM
[2019-01-04 15:38] VITALS: BP 164/77
[2019-01-04 17:25] LABS: CKMB 7.4 U/L (0.0-3.6); CREATINE KINASE 111 UL (21-215); POTASSIUM - SERUM 3.4 mmol/L (3.5-5.1); TROPONIN-I 0.021 ng/mL (0.000-0.060)
--- NOTE | 2019-01-04 19:25 | NUR ---
REPORT RECIEVED AND ROUNDING COMPLETE. PT LAYING IN BED, PT IS RECIEVING A BREATHING TREATMENT AT THIS TIME. PT STATES SHE HAS NO NEEDS AT THIS TIME CALL LIGHT WITHIN REACH AND BED IN LOWEST POSITION.
[2019-01-04 20:00] VITALS: BP 150/72
--- NOTE | 2019-01-04 21:42 | NUR ---
I have reviewed this patient and I concur with the Shift Assessment completed by the Licensed Practical Nurse today this shift.
[2019-01-04 23:26] LABS: CKMB 7.2 U/L (0.0-3.6); CREATINE KINASE 111 UL (21-215); POTASSIUM - SERUM 3.6 mmol/L (3.5-5.1); TROPONIN-I 0.019 ng/mL (0.000-0.060)
[2019-01-05 00:30] VITALS: BP 152/71
[2019-01-05 05:00] LABS: BASOPHILS 0 % (0-2); EOSINOPHILS 0 % (0-7); HEMATOCRIT 37.7 % (36.0-48.0); HEMOGLOBIN 12.4 g/dL (12-16); IMMATURE GRANULOCYTES 0.5 % (0-5); LYMPHOCYTES 4.1 % (15-50); MCH 28.4 pg (26.0-34.0); MCHC 32.9 g/dL (31.0-37.0); MCV 86.5 fL (80.0-100.0); MEAN PLATELET VOLUME 10.3 fL (7.4-10.4); MONOCYTES 4.7 % (2-11); NEUTROPHILS 90.7 % (40-80); RBC 4.36 10x6/uL (4.00-5.40); RDW 14.9 % (11.5-14.5)
[2019-01-05 05:05] LABS: PLATELET COUNT 246 10x3/uL (130-400); WBC 12.9 10x3/uL (4.8-10.8)
[2019-01-05 05:07] LABS: ANION GAP 13.5 mmol/L (8-16); CALCIUM 8.5 mg/dL (8.5-10.1); CARBON DIOXIDE 22.2 mmol/L (21.0-32.0)
[2019-01-05 05:09] LABS: POTASSIUM - SERUM 4.7 mmol/L (3.5-5.1)
[2019-01-05 05:30] VITALS: BP 131/56
--- NOTE | 2019-01-05 07:12 | NUR ---
PT AWAKE AND ORIENTED, FINISHING BREATHING TREATMENT. NO CMPLAINTS/CONCERNS, REQUESTS A COMB, WILL PROVIDE. CL IN REACH, SRX2. CL IN REACH, SRX2.
--- NOTE | 2019-01-05 07:37 | NUR ---
PT O2 SATS WERE DROPPING 88 TO 90, RESPIRATORY ASSESSED, AGREED TO PUT PT ON 2L02 FOR THE TIME BEING.
[2019-01-05 08:52] VITALS: BP 149/72
--- NOTE | 2019-01-05 10:37 | NUR ---
I have reviewed this patient and I concur with the Shift Assessment completed by the Licensed Practical Nurse today this shift.
--- NOTE | 2019-01-05 11:08 | NUR ---
Nutrition Follow Up: Chart reviewed Diet: Regular PO Intake: 79% meal avg BM: 01/03/19 Labs reviewed - Glucose elevated Meds noted including Solu Medrol Rec continue current diet. RD following.
[2019-01-05 12:29] VITALS: BP 138/78
--- NOTE | 2019-01-05 14:22 | MORECARE ---
CASE MANAGEMENT DISCHARGE SUMMARY PATIENT: RADHA MENDEZ LINDA UNIT: [id number] ADM DATE: 01/03/19 AGE: 73 : 43 SEX: F ROOM/BED: D.210 AUTHOR: RACHEL TADEO PHYSICIAN: REFERRING PHYSICIAN: JALEEL PRITCHARD MD DATE OF SERVICE: 01/05/19 Discharge Plan Patient Name: RADHA MENDZE Facility: [facility]:[place] : 1945 Planned Disposition: Home Anticipated Discharge Date: 01/05/19 Discharge Date: Expected LOS: 2 Initial Reviewer: [email or web address] Initial Review Date: 01/05/2019 Generated: 01/05/19 3:22 pm Patient Name: RADHA MENDEZ Page [id number] at 1422 All edits/amendments must be made on the electronic document DICTATION DATE: 01/05/19 1421 CENTRAL SUPPLY WORKER: PAPA 01/05/19 1421 RPT#: [id number] DC DATE: STATUS: ADM IN [facility] [address] [place] [address] END OF REPORT
--- NOTE | 2019-01-05 14:33 | MORECARE ---
CASE MANAGEMENT DISCHARGE SUMMARY PATIENT: RADHA MENDEZ LINDA UNIT: [id number] ADM DATE: 01/03/19 AGE: 73 : 41 SEX: F ROOM/BED: D.2104 AUTHOR: SHWETHADOC PHYSICIAN: REFERRING PHYSICIAN: JALEEL PRITCHARD MD DATE OF SERVICE: 01/05/19 Discharge Plan Patient Name: RADHA MENDEZ Facility: [facility]:[place] : 1945 Planned Disposition: Home Anticipated Discharge Date: 01/05/19 Discharge Date: Expected LOS: 2 Initial Reviewer: [email or web address] Initial Review Date: 01/05/2019 Generated: 01/05/19 3:33 pm Comments DCP- Discharge Planning Updated by [email or web address]: Cruz Wyatt on 01/05/19 1:[address] Patient Name: RADHA MENDEZ Admission Status: Elective Accout number: [id number] Admission Date: 01-03-2019 : 1945 Admission Diagnosis: Attending: JALEEL PRITCHARD Current LOS: 2 Anticipated DC Date: 01-05-2019 Planned Disposition: Home Primary Insurance: MEDICARE A & B Discharge Planning Comments: CM MET WITH PT IN ROOM TO DISCUSS DISCHARGE PLANNING AND NEEDS. 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 PT HAS NO MEDICAL EQUIPMENT AND NO OUTSIDE SERVICES ASSISTING IN THE HOME. CM DISCUSSED AVAILABILITY OF HOME HEALTH, REHAB SERVICES AND MEDICAL EQUIPMENT. PT HAS NO ANTICIPATED DISCHARGE NEEDS AT THIS TIME, REPORTS FAMILY WILL PICK HER UP FOR DISCHARGE HOME. 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 PT HAS NO ANTICIPATED DISCHARGE NEEDS AT THIS TIME. CM TO FOLLOW AND ASSIST IF NEEDED. Surgical Services Assistant: Cruz Wyatt DCPIA - Discharge Planning Initial Assessment Updated by [id number]: Cruz Wyatt on 01/05/19 2:22 pm * Is the patient Alert and Oriented? Yes * How many steps to enter\exit or inside your home? NONE * PCP DR. CORRIGAN * [facility] * Preadmission Environment Home with Family * ADLs Independent * Equipment None * Other Equipment NO MEDICAL EQUIPMENT PROVIDER PREFERENCE * List name and contact numbers for known caregivers / representatives who currently or will assist patient after discharge: HUSSEIN TOLBERT, DTR, TATE ORDOÑEZ, DTR, * Verbal permission to speak to the caregivers and representatives has been obtained from the patient. Yes * Community resources currently utilized None * Please name any agencies selected above. NONE * Additional services required to return to the preadmission environment? No * Can the patient safely return to the preadmission environment? Yes * Has this patient been hospitalized within the prior 30 days at any hospital? No Last DP export: 01/05/19 1:22 p Patient Name: RADHA MENDEZ Page [id number] at 1433 All edits/amendments must be made on the electronic document DICTATION DATE: 01/05/191432 PAID SEARCH MARKETING STRATEGIST: PAPA 01/05/191432 RPT#: [id number] DC DATE: STATUS: ADM IN [facility] [address] [place] [address] END OF REPORT
--- NOTE | 2019-01-05 17:53 | NUR ---
PT LYING IN BED, AWAKE AND ORIENTED. NO COPLAINTS/CONCERNS VOICED. SHE THOUGHT US TRYING TO FIGURE OUT HOW TO USE THE MANUAL HOIYER LIFT WAS HILARIOUS. CL IN REACH, SRX2.
[2019-01-05 18:00] VITALS: BP 140/82
[2019-01-05 20:00] VITALS: BP 172/78
--- NOTE | 2019-01-05 20:17 | NUR ---
RECIEVED LAYING IN BED HOLDING RIGHT ARM UP WITH LEFT HAND. C/O PAIN AND REQUESTING PAIN MEDICATION. EDUCATED ON TIMES OF PAIN MEDICATION AND OFFERED TYLENOL AND HE ACCEPTED. TYLENOL GIVEN PER ORDERSS. ALERT AND ORIENTED X4. STATING " I NEED TO GET UP AND EAT SOMETHING". GETTING UP ON SIDE OF BED WHEN THIS NURSE LEFT THE ROOM.
--- NOTE | 2019-01-05 20:28 | NUR ---
RECIEVED LAYING IN BED WITH HOB ELEVATED AND O2@ OFF. STATES "THEY TOOK IT OFF ME TODAY". VISITORS AT BEDSIDE. IV TO LEFT FA WITH NS AT 30CC/HR. TELEMETRY IN PLACE. CRACKLES TO RIGHT LOWER LOBE. OTHERWISE CLEAR. DENIES ANY NEEDS AT THIS TIME.
[2019-01-06 00:30] VITALS: BP 146/72
[2019-01-06 04:30] VITALS: BP 134/64
[2019-01-06 05:48] LABS: BASOPHILS 0.1 % (0-2); EOSINOPHILS 0 % (0-7); HEMATOCRIT 37.7 % (36.0-48.0); HEMOGLOBIN 12.4 g/dL (12-16); IMMATURE GRANULOCYTES 1.8 % (0-5); LYMPHOCYTES 4.7 % (15-50); MCH 28.6 pg (26.0-34.0); MCHC 32.9 g/dL (31.0-37.0); MCV 86.9 fL (80.0-100.0); MEAN PLATELET VOLUME 10.2 fL (7.4-10.4); MONOCYTES 5.2 % (2-11); NEUTROPHILS 88.2 % (40-80); PLATELET COUNT 243 10x3/uL (130-400); RBC 4.34 10x6/uL (4.00-5.40); RDW 14.9 % (11.5-14.5); WBC 11.1 10x3/uL (4.8-10.8)
[2019-01-06 06:07] LABS: ANION GAP 12.6 mmol/L (8-16); CALCIUM 8.8 mg/dL (8.5-10.1); CARBON DIOXIDE 22.4 mmol/L (21.0-32.0)
--- NOTE | 2019-01-06 07:23 | NUR ---
PT IS ASLEEP, DID NOT WAKE I ENTERED. DID NOT FURTHER DISTURB AT THIS TIME. CL IN REACH, SRX2. PT SHOWS NO C/C OF DITRES, BREATHS EVEN AND REGULAR.
[2019-01-06 09:33] VITALS: BP 150/82
--- NOTE | 2019-01-06 13:41 | NUR ---
I have reviewed this patient and I concur with the Shift Assessment completed by the Licensed Practical Nurse today this shift.
[2019-01-06 15:30] VITALS: BP 152/97
--- NOTE | 2019-01-06 18:25 | NUR ---
PT RESTING IN BED. NO COMPLAINTS/CONCERNS VOICED AT THIS TIME. PT STATES SHE'S COMFORTABLE AND READY TO GO HOME SOON. CL IN REACH, SRX2.
--- NOTE | 2019-01-06 19:45 | NUR ---
PT SITTING UP IN BED ALERT AND ORIENTED X4. PT REQUEST TO TAKE A SHOWER. ÁNGELA SERNA ASSISTED PT TO SHOWER. PT STATES, "I FEEL SO MUCH BETTER TODAY. I SLEPT SO GOOD LAST NIGHT." BED LOW CALL LIGHT WITHIN REACH, RR EVEN AND UNLABORED. WILL CONTINUE TO MONITOR.
--- NOTE | 2019-01-06 20:15 | NUR ---
PT BP 203/102. MARQUEZ PAGED FOR ORDERS. WILL CONTINUE TO MONITOR.
--- NOTE | 2019-01-06 20:30 | NUR ---
NAOMI ZAYAS CALLED BACK CONCERNING PT BP. ORDER FOR PT TO HAVE 240MG OF CARDIZEM THATS A HOME MED AND PRN APRESOLINE. SEE MAR. CARDIZEM GIVEN AT THIS TIME. BED LOW CALL LIGHT WITHIN REACH. WILL CONTINUE TO MONITOR.
--- NOTE | 2019-01-06 23:00 | NUR ---
PT BP 150/90. BED LOW CALL LIGHT WITHIN REACH. WILL CONTINUE TO MONITOR.
[2019-01-07 00:30] VITALS: BP 159/90
--- NOTE | 2019-01-07 01:33 | NUR ---
PT RESTING COMFORTABLY IN BED. RR EVEN AND UNLABORED. NO S/S OF DISTRESS. BED LOW CALL LIGHT WITHIN REACH. WILL CONTINUE TO MONITOR.
--- NOTE | 2019-01-07 03:37 | NUR ---
I have reviewed this patient and I concur with the Shift Assessment completed by the Licensed Practical Nurse today this shift.
[2019-01-07 05:17] LABS: BASOPHILS 0.2 % (0-2); EOSINOPHILS 0 % (0-7); HEMATOCRIT 37.9 % (36.0-48.0); HEMOGLOBIN 12.5 g/dL (12-16); IMMATURE GRANULOCYTES 5.2 % (0-5); LYMPHOCYTES 6.7 % (15-50); MCH 28.5 pg (26.0-34.0); MCV 86.5 fL (80.0-100.0); MEAN PLATELET VOLUME 10.3 fL (7.4-10.4); MONOCYTES 4.4 % (2-11); NEUTROPHILS 83.5 % (40-80); PLATELET COUNT 228 10x3/uL (130-400); RBC 4.38 10x6/uL (4.00-5.40); RDW 14.8 % (11.5-14.5); WBC 10.6 10x3/uL (4.8-10.8)
[2019-01-07 05:30] VITALS: BP 151/100
[2019-01-07 05:35] LABS: ANION GAP 12.1 mmol/L (8-16); CALCIUM 8.5 mg/dL (8.5-10.1); CARBON DIOXIDE 26.8 mmol/L (21.0-32.0); POTASSIUM - SERUM 3.9 mmol/L (3.5-5.1)
--- NOTE | 2019-01-07 07:13 | NUR ---
PT RESTING PEACEFULLY, NO S/S OF DISTRESS. BREATHS EVEN/REGULAR. DID NOT WAKE I ENTERED, DID NOT FURTHER DISTURB AT THIS TMIE. CL IN REACH, SRX2, DOOR OPEN.
[2019-01-07 08:14] VITALS: BP 155/83
--- NOTE | 2019-01-07 10:39 | NUR ---
PT HAS BEEN UP AMBULATING THE HALLWAYS. STATES SHE'D LOVE TO GO HOME TODAY OR SOON POSSIBLE. NO COMPLAINTS/CONERNS TO VOICE, OTHER THAN THE DESIRE TO LEVE. PT HAS HAD NO AMBULATION COMPLICATIONS.
--- NOTE | 2019-01-07 11:18 | NUR ---
I have reviewed this patient and I concur with the Shift Assessment completed by the Licensed Practical Nurse today this shift.
[2019-01-07] MEDS ORDERED: LEVOFLOXACIN500 MG PO (12:35)
[2019-01-07] MEDS ORDERED: PREDNISONE10 MG PO (12:36)
[2019-01-07 13:06] VITALS: BP 157/84
--- NOTE | 2019-01-07 18:10 | NUR ---
PT HAS BEEN UP INTERMITENTLY ROAMING THE HALLS AT HER LESIURE. NO COMPLAINTS/CONCERNS VOICED, DISAPOINTED SHE ISN'T GOING HOME TODAY BUT HOPEFUL TO BE LEAVING SOON. PT HAS HAD NO PROBLEMS AMBULATING, SHE IS SHORT OF BREATH WITH WALKING, BUT NOT UMCOFORTABLY SO. PT SATS WELL WIHTOUT O2, HAS IT PRN BY BEDSIDE INCASE SHE NEEDS IT. CURRENTLY LYING DOWN READING. CL INREACH, SRX2.
[2019-01-07 20:00] VITALS: BP 155/87
--- NOTE | 2019-01-07 20:07 | NUR ---
PT LAYING IN BED RESTING ALERT AND ORIENTED X4. PT RR EVEN AND UNLABORED. PT DENIES ANY PAIN OR NEEDS AT THIS TIME. BED LOW CALL LIGHT WITHIN REACH. WILL CONTINUE TO MONITOR.
[2019-01-08 00:27] VITALS: BP 138/77
[2019-01-08 04:25] VITALS: BP 145/83
[2019-01-08 04:47] LABS: BASOPHILS 0.3 % (0-2); EOSINOPHILS 0 % (0-7); HEMATOCRIT 37.7 % (36.0-48.0); HEMOGLOBIN 12.6 g/dL (12-16); IMMATURE GRANULOCYTES 8.6 % (0-5); LYMPHOCYTES 7.6 % (15-50); MCH 28.5 pg (26.0-34.0); MCHC 33.4 g/dL (31.0-37.0); MCV 85.3 fL (80.0-100.0); MEAN PLATELET VOLUME 10.2 fL (7.4-10.4); MONOCYTES 5.3 % (2-11); NEUTROPHILS 78.2 % (40-80); PLATELET COUNT 239 10x3/uL (130-400); RBC 4.42 10x6/uL (4.00-5.40); RDW 14.7 % (11.5-14.5); WBC 11.7 10x3/uL (4.8-10.8)
[2019-01-08 04:49] LABS: ANION GAP 13.4 mmol/L (8-16); CALCIUM 8.5 mg/dL (8.5-10.1); CARBON DIOXIDE 26.5 mmol/L (21.0-32.0); CREATININE - SERUM 1.1 mg/dL (0.6-1.3); POTASSIUM - SERUM 3.9 mmol/L (3.5-5.1)
--- NOTE | 2019-01-08 07:23 | NUR ---
I have reviewed this patient and I concur with the Shift Assessment completed by the Licensed Practical Nurse today this shift.
[2019-01-08 07:40] VITALS: BP 159/99
[2019-01-08 11:45] VITALS: BP 159/94
[2019-01-08 16:08] VITALS: BP 146/76
--- NOTE | 2019-01-09 06:52 | MORECARE ---
CASE MANAGEMENT DISCHARGE SUMMARY PATIENT: RADHA MENDEZ LINDA UNIT: [id number] ADM DATE: 01/03/19 AGE: 73 : 43 SEX: F ROOM/BED: D.2107 AUTHOR: SHWETHADOC PHYSICIAN: REFERRING PHYSICIAN: JALEEL PRITCHARD MD DATE OF SERVICE: 01/09/19 Discharge Plan Patient Name: RADHA MENDEZ Facility: [facility]:[place] : 1945 Planned Disposition: Home Anticipated Discharge Date: 01/08/19 Discharge Date: 01/08/2019 Expected LOS: 5 Initial Reviewer: [email or web address] Initial Review Date: 01/05/2019 Generated: 01/09/19 7:52 am DCP- Discharge Planning Updated by [email or web address]: Cruz Wyatt on 01/05/19 1:[address] Patient Name: RADHA MENDEZ Admission Status: Elective Accout number: [id number] Admission Date: 01-03-2019 : 1945 Admission Diagnosis: Attending: JALEEL PRITCHARD Current LOS: 2 Anticipated DC Date: 01-05-2019 Planned Disposition: Home Primary Insurance: MEDICARE A & B Discharge Planning Comments: CM MET WITH PT IN ROOM TO DISCUSS DISCHARGE PLANNING AND NEEDS. 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 PT HAS NO MEDICAL EQUIPMENT AND NO OUTSIDE SERVICES ASSISTING IN THE HOME. CM DISCUSSED AVAILABILITY OF HOME HEALTH, REHAB SERVICES AND MEDICAL EQUIPMENT. PT HAS NO ANTICIPATED DISCHARGE NEEDS AT THIS TIME, REPORTS FAMILY WILL PICK HER UP FOR DISCHARGE HOME. 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 PT HAS NO ANTICIPATED DISCHARGE NEEDS AT THIS TIME. CM TO FOLLOW AND ASSIST IF NEEDED. Production Quality Analyst: Cruz Wyatt DCPIA - Discharge Planning Initial Assessment Updated by [id number]: Cruz Wyatt on 01/05/19 2:22 pm * Is the patient Alert and Oriented? Yes * How many steps to enter\exit or inside your home? NONE * PCP DR. CORRIGAN * [facility] * Preadmission Environment Home with Family * ADLs Independent * Equipment None * Other Equipment NO MEDICAL EQUIPMENT PROVIDER PREFERENCE * List name and contact numbers for known caregivers / representatives who currently or will assist patient after discharge: HUSSEIN TOLBERT, DTR, TATE ORDOÑEZ, DTR, * Verbal permission to speak to the caregivers and representatives has been obtained from the patient. Yes * Community resources currently utilized None * Please name any agencies selected above. NONE * Additional services required to return to the preadmission environment? No * Can the patient safely return to the preadmission environment? Yes * Has this patient been hospitalized within the prior 30 days at any hospital? No Last DP export: 01/05/19 1:33 p Patient Name: RADHA MENDEZ Page 15146 at 0652 All edits/amendments must be made on the electronic document DICTATION DATE: 01/09/19650 PROCUREMENT TECHNICIAN: PAPA 01/09/1953 RPT#: [id number] DC DATE:01/08/19 STATUS: DIS IN [facility] [address] [place] [address] END OF REPORT
== END 2019-01-08 17:44 | disposition home or self-care (01) | DRG 202 ==
LOC: D.M2 19:15 → OBSVTIME 19:15 → D.M2 19:15
PROVIDERS: ADMIT Emergency Medicine; ATTEND Emergency Medicine
DX: J20.9 Acute bronchitis, unspecified (principal); J44.1 Chronic obstructive pulmonary disease with (acute) exacerbation; N39.0 Urinary tract infection, site not specified; I25.10 Atherosclerotic heart disease of native coronary artery without angina pectoris; E86.0 Dehydration; I10 Essential (primary) hypertension; M81.0 Age-related osteoporosis without current pathological fracture; M41.9 Scoliosis, unspecified; K21.9 Gastro-esophageal reflux disease without esophagitis; Z85.05 Personal history of malignant neoplasm of liver

== ENCOUNTER 2019-03-15 19:51 | Emergency (ER) | payer MEDICARE, BC ==
[~2019-03-15] VITALS: Ht 152.4 cm; Wt 57.3 kg
[~2019-03-15 19:51] MED LIST changes: +LEVOFLOXACIN500 MG PO; +PREDNISONE10 MG PO
[2019-03-15 19:57] VITALS: Ht 152.4 cm; Wt 57.3 kg
[2019-03-15 23:29] VITALS: BP 140/80
== END 2019-03-15 23:29 | disposition home or self-care (01) ==
LOC: D.ER 19:51
DX: H20.00 Unspecified acute and subacute iridocyclitis (principal); H59.89 Other postprocedural complications and disorders of eye and adnexa, not elsewhere classified; Y84.9 Medical procedure, unspecified as the cause of abnormal reaction of the patient, or of later complication, without mention of misadventure at the time of the procedure; Z86.73 Personal history of transient ischemic attack (TIA), and cerebral infarction without residual deficits; I10 Essential (primary) hypertension; J44.9 Chronic obstructive pulmonary disease, unspecified

== ENCOUNTER 2020-10-24 16:25 | Emergency (ER) | payer MEDICARE, OTHER ==
[~2020-10-24] VITALS: Ht 152.4 cm; Wt 47.7 kg
[2020-10-24 16:32] VITALS: Ht 152.4 cm; Wt 47.7 kg
[2020-10-24] MEDS ORDERED: TOPROL XL50 MG PO (19:39)
[2020-10-24] MEDS ORDERED: XANAX0.5 MG PO (19:40)
[2020-10-24 21:16] VITALS: BP 165/91
== END 2020-10-24 21:19 | disposition home or self-care (01) ==
LOC: D.ER 16:25
DX: F43.20 Adjustment disorder, unspecified (principal); I10 Essential (primary) hypertension; R55 Syncope and collapse; F43.0 Acute stress reaction; J44.9 Chronic obstructive pulmonary disease, unspecified